=== PATIENT | female | born 1945 | race Caucasian/White ===

== ENCOUNTER → 2016-12-24 | Outpatient (CLI) | payer MEDICARE, OTHER ==
--- NOTE | 2016-12-28 06:56 | MM ---
Reason for exam: screening (asymptomatic). Last mammogram was performed 1 year ago. History: Patient is postmenopausal and history of other cancer. Physical Findings: A clinical breast exam by your physician is recommended on an annual basis and results should be correlated with mammographic findings. MG Screening Mammo w CAD Bilateral CC and MLO view(s) were taken. Prior study comparison: December 15, 2015, bilateral MG screening mammo w CAD. December 13, 2014, bilateral MG screening mammo w CAD. December 11, 2013, bilateral digital screening mammo w/CAD. There are scattered fibroglandular densities. No significant changes when compared with prior studies. ASSESSMENT: Negative, BI-RAD 1 RECOMMENDATION: Routine screening mammogram of both breasts in 1 year.
== END | disposition home or self-care (01) ==
LOC: RADMAMWWP 12:54
PROVIDERS: ATTEND Obstetrics & Gynecology
DX: Z12.31 Encounter for screening mammogram for malignant neoplasm of breast (principal)

== ENCOUNTER → 2017-03-28 | Outpatient (CLI) | payer MEDICARE, OTHER ==
--- NOTE | 2017-03-28 15:36 | BD ---
EXAMINATION TYPE: MG DEXA axial skeleton. DATE OF EXAM: 03/28/2017 1:00 PM CLINICAL HISTORY: Height: 6 in Weight: 179 FRAX RISK QUESTIONS: Alcohol (3 or more units per day): no Family History (Parent hip fracture): no Glucocorticoids (More than 3mos): no (Ex: prednisone, prednisolone, methylprednisolone, dexamethasone, and hydrocortisone). History of Fracture in Adulthood: yes Secondary Osteoporosis: 1. Type 1 Diabetes: no 2. Hyperthyroidism: no 3. Menopause before 45: 51 4. Malnutrition: no 5. Chronic liver disease: no Rheumatoid Arthritis: no Current Tobacco Use: no RISK FACTORS HISTORY OF: Other Fractures since Age 51: yes, ankle Family History of Osteoporosis: yes, mother Drink Alcohol: wine, occasionally Active: yes Diet low in dairy products/other sources of calcium: no Postmenopausal woman: yes Take estrogen and/or progesterone medications: no Lost more than 2 inches in height since high school: no Frequent falls: no Poor Health: no Hyperparathyroidism: no Adrenal Insufficiency: no MEDICATIONS: Prednisone or other steroids: no Thyroid Medications: yes Which medication: Levothyroxine How Long: about 10 years Osteoporosis Medications: no Additional Medications: calcium & Vitamin D, blood pressure meds EXAM MEASUREMENTS: Bone mineral densitometry was performed using the [employer] System. Bone mineral density as measured about the Lumbar spine is: ----- L1-L4(G/cm2): 1.386 T Score Values are as follows: ----- L2: 1.0 ----- L3: 2.3 ----- L4: 2.5 ----- L1-L4: 1.7 Bone mineral density has: Decreased -6.6% since study of: 02/24/2015 Bone mineral density about the R hip (g/cm2): 0.865 Bone mineral density about the L hip (g/cm2): 0.876 T Score values are as follows: -----R Neck: -1.2 -----L Neck: -1.2 -----R Total: -1.1 -----L Total: -1.0 Bone mineral density has: Decreased -0.6% since study of: 02/24/2015 IMPRESSION: Osteopenia (T Score between -2.5 and -1 as noted by T score values Both hips There is slightly increased risk of fracture and the patient may be considered for treatment. Re-Screen 2-5 years. NOTE: T-SCORE=SD OF THE YOUNG ADULT MEAN.
== END | disposition home or self-care (01) ==
LOC: RADBDWWP 12:24
PROVIDERS: ATTEND Obstetrics & Gynecology
DX: M85.80 Other specified disorders of bone density and structure, unspecified site (principal)
CPT/HCPCS: 77080

== ENCOUNTER 2017-11-17 13:40 | Inpatient (IN) | payer MEDICARE, OTHER ==
--- NOTE | 2017-11-17 16:23 | ED ---
General Adult HPI - General Chief complaint: Abdominal Pain Stated complaint: pain on left side Time Seen by Provider: 11/17/17 16:08 Source: patient, family, RN notes reviewed, old records reviewed Mode of arrival: ambulatory Limitations: no limitations - History of Present Illness Initial comments: Complaint and history of present illness this is a 72-year-old female here with her . Patient reports for the past 24-48 hours to discomfort in the left side of her abdomen. Slightly decreased appetite no nausea no vomiting she does have little bowel movement this morning a normal bowel movement 2 days ago. She does have a past history of bowel surgery because of adhesions. - Related Data Home Medications Medication Instructions Recorded Confirmed Amitriptyline HCl [Amitriptyline 50 mg PO HS 06/14/16 11/17/17 HCl] Aspirin 81 mg PO DAILY 06/14/16 11/17/17 Calcium Carbonate/Vitamin D3 2 tab PO DAILY 06/14/16 11/17/17 [Calcium 600-Vit D3 800 Tab] Docusate [Colace] 100 mg PO BID 06/14/16 11/17/17 Fish Oil/Dha/Epa [Fish Oil 1,200 1 cap PO DAILY 06/14/16 11/17/17 mg Fish Oil] Glucosamine Sulfate 1,500 mg PO DAILY 06/14/16 11/17/17 L.acidoph,Paracasei, B.lactis 1 cap PO DAILY 06/14/16 11/17/17 [Probiotic] Levothyroxine Sodium [Synthroid] 88 mcg PO QAM 06/14/16 11/17/17 Losartan [Cozaar] 50 mg PO QAM 06/14/16 11/17/17 Multivit-Min/Iron/Folic/Lutein 1 each PO DAILY 06/14/16 11/17/17 [Centrum Silver Women Tablet] Omeprazole 20 mg PO HS 06/14/16 11/17/17 Spironolactone [Spironolactone] 37.5 mg PO DAILY 06/14/16 11/17/17 Cholecalciferol [Vitamin D3] 500 unit PO DAILY 11/17/17 11/17/17 Ciprofloxacin HCl [Cipro] 500 mg PO Q12HR PRN 11/17/17 11/17/17 Clindamycin HCl [Cleocin] 600 mg PO ONCE PRN 01/11/18 01/11/18 Fluorometholone 0.1% Ophth Elly 1 drops BOTH EYES Q6H PRN 11/17/17 11/17/17 [Fml] Ibuprofen [Motrin] 200 - 400 mg PO Q6HR PRN 11/17/17 11/17/17 Minocycline [Minocin] 50 mg PO Q12HR PRN 11/17/17 11/17/17 Sodium Chloride 5% Ophth Oint 1 applic BOTH EYES HS 11/17/17 11/17/17 [Chikis 128] Turmeric Root Extract [Turmeric] 500 mg PO DAILY PRN 11/17/17 11/17/17 Allergies Allergy/AdvReac Type Severity Reaction Status Date / Time celecoxib [From Celebrex] Allergy "dizziness,elevated Verified 11/17/17 16:09 b/p" codeine Allergy "upset Verified 11/17/17 16:09 stomach" erythromycin base Allergy "stomach Verified 11/17/17 16:09 issues" hydrocodone Allergy "didn't Verified 11/17/17 16:09 feel well",constipation hydrocodone bitartrate Allergy "didn't Verified 11/17/17 16:09 [From Lortab] feel well",constipation Penicillins Allergy Rash/Hives Verified 11/17/17 16:09 oxycodone HCl [From Percocet] AdvReac constipatio Verified 11/17/17 16:09 n Review of Systems ROS Statement: Those systems with pertinent positive or pertinent negative responses have been documented in the HPI. Review of systems; no headache or visual acuity changes no stiff neck no chest pain or shortness of breath or abdominal discomfort is the left side of the abdomen. No back pain. No change in urine habits. She has had constipation problems in the past. She's had history of adhesions and needed surgery for lysis of adhesions. No neuro deficits. All systems are reviewed. Past medical problems basal skin cancer, GERD, hypertension, osteoarthritis, hypothyroidism. The patient's also history diverticulitis. She's had a partial hysterectomy, total right knee replacement and as noted above lysis of adhesions in the abdomen. Family history significant for brother at polyp removed which was cancers. And a mother of lung cancer. Patient has ALLERGIES to medications that cause constipation not true ALLERGY. The patient denies smoking drinks alcohol socially. ROS Other: All systems not noted in ROS Statement are negative. Past Medical History Past Medical History: Cancer, GERD/Reflux, Hypertension, Osteoarthritis (OA), Thyroid Disorder Additional Past Medical History / Comment(s): skin cancer-basal cell,torn cornea ,dry eyes History of Any Multi-Drug Resistant Organisms: None Reported Past Surgical History: Hysterectomy, Joint Replacement, Orthopedic Surgery Additional Past Surgical History / Comment(s): rt knee replaced, laparotomy repair to untwist bowel Past Anesthesia/Blood Transfusion Reactions: No Reported Reaction Past Psychological History: No Psychological Hx Reported Smoking Status: Never smoker Past Alcohol Use History: None Reported Past Drug Use History: None Reported - Past Family History Father Family Medical History: Myocardial Infarction ([place]) Mother Family Medical History: Cancer Additional Family Medical History / Comment(s): lung problems General Exam - General Exam Comments Initial Comments: General: The patient is awake and alert, in no distress, and does not appear acutely ill. With a complaint of left lower and lateral abdominal pain no bowel movement for 24 hours. Vital signs temperature 99.2 pulse 100 respiratory rate 18 pulse ox on percent room air blood pressure 130/67 Eye: Pupils are equal, round and reactive to light, extra-ocular movements are intact ; there is normal conjunctiva bilaterally. No signs of icterus. Ears, nose, mouth and throat: There are moist mucous membranes and no oral lesions. Neck: The neck is supple, there is no tenderness no anterior cervical lymphadenopathy , thyroid not enlarged. Cardiovascular: There is a regular rate and rhythm. No murmur, rub or gallop is appreciated. Respiratory: Lungs are clear to auscultation, respirations are non-labored, breath sounds are equal. No wheezes, stridor, rales, or rhonchi. Gastrointestinal: Abdomen is soft to the entire abdomen except for the left lower and lateral abdomen with the patient has voluntary guarding. Normoactive bowel sounds. No masses palpable. No rebound or referred pain. Back: There is no tenderness to palpation in the midline. There is no obvious deformity. No rashes noted. Shingles was discussed. Musculoskeletal: Normal ROM, no tenderness, There is no pedal edema. There is no calf tenderness or swelling. Sensation intact. Pulses equal bilaterally 2+. Neurological: Eyes any neuro deficits, walking talking in normal fashion. Skin: Skin is warm and dry and no rashes or lesions are noted. Psychiatric: No complaint of or evidence of depression or anxiety. Limitations: no limitations Course Vital Signs 11/17/17 11/17/17 14:30 19:16 Temperature 99.2 F 99.3 F Pulse Rate 100 98 Respiratory 18 18 Rate Blood Pressure 130/67 121/62 O2 Sat by Pulse 100 98 Oximetry Medical Decision Making - Medical Decision Making Medical decision making; the patient is here because of left lower lateral lower abdominal pain. Labs show white count of 10.8 hemoglobin 12 medical 36, potassium 4.0 with a BUN 14 creatinine 0.8 to GFR greater than 60. Glucose 88. Amylase lipase normal, plasma lactic acid normal at 1.0. Urine clean no signs of infection Tray of the abdomen was done and reviewed by radiologist his impression is he cannot exclude early left lower lobe infiltrate. No acute intra-abdominal abnormality as read by Dr. Santana CT of the abdomen was done with IV and oral contrast. The radiologist's final impression is acute diverticulitis involving the distal descending colon without evidence of pericolonic abscess or colonic rupture. Mild degenerative changes of the spine. As read by Dr. Santana. She'll be started on Levaquin and Flagyl and admitted for further evaluation. - Lab Data Result diagrams: 11/17/17 16:39 11/17/17 16:39 Lab Results 11/17/17 11/17/17 11/17/17 Range/Units 16:39 16:39 16:39 WBC 10.8 H (3.8-10.6) k/uL RBC 4.46 (3.80-5.40) m/uL Hgb 12.3 (11.4-16.0) gm/dL Hct 36.0 (34.0-46.0) % MCV 80.7 (80.0-100.0) fL MCH 27.6 (25.0-35.0) pg MCHC 34.2 (31.0-37.0) g/dL RDW 13.6 (11.5-15.5) % Plt Count 219 (150-450) k/uL Neutrophils % 76 % Lymphocytes % 18 % Monocytes % 4 % Eosinophils % 1 % Basophils % 0 % Neutrophils # 8.2 H (1.3-7.7) k/uL Lymphocytes # 2.0 (1.0-4.8) k/uL Monocytes # 0.4 (0-1.0) k/uL Eosinophils # 0.1 (0-0.7) k/uL Basophils # 0.0 (0-0.2) k/uL Sodium 137 (137-145) mmol/L Potassium 4.0 (3.5-5.1) mmol/L Chloride 99 (98-107) mmol/L Carbon Dioxide 23 (22-30) mmol/L Anion Gap 15 mmol/L BUN 14 (7-17) mg/dL Creatinine 0.82 (0.52-1.04) mg/dL Est GFR (MDRD) Af Amer >60 (>60 ml/min/1.73 sqM) Est GFR (MDRD) Non-Af >60 (>60 ml/min/1.73 sqM) Glucose 88 (74-99) mg/dL Plasma Lactic Acid Anil 1.0 (0.7-2.0) mmol/L Calcium 10.0 (8.4-10.2) mg/dL Total Bilirubin 0.8 (0.2-1.3) mg/dL AST 35 (14-36) U/L ALT 38 (9-52) U/L Alkaline Phosphatase 62 (38-126) U/L Total Protein 7.7 (6.3-8.2) g/dL Albumin 4.8 (3.5-5.0) g/dL Amylase 57 (30-110) U/L Lipase 74 (23-300) U/L Urine Color Urine Appearance (Clear) Urine pH (5.0-8.0) Ur Specific [place] (1.001-1.035) Urine Protein (Negative) Urine Glucose (UA) (Negative) Urine Ketones (Negative) Urine Blood (Negative) Urine Nitrite (Negative) Urine Bilirubin (Negative) Urine Urobilinogen (<2.0) mg/dL Ur Leukocyte Esterase (Negative) 11/17/17 Range/Units 16:39 WBC (3.8-10.6) k/uL RBC (3.80-5.40) m/uL Hgb (11.4-16.0) gm/dL Hct (34.0-46.0) % MCV (80.0-100.0) fL MCH (25.0-35.0) pg MCHC (31.0-37.0) g/dL RDW (11.5-15.5) % Plt Count (150-450) k/uL Neutrophils % % Lymphocytes % % Monocytes % % Eosinophils % % Basophils % % Neutrophils # (1.3-7.7) k/uL Lymphocytes # (1.0-4.8) k/uL Monocytes # (0-1.0) k/uL Eosinophils # (0-0.7) k/uL Basophils # (0-0.2) k/uL Sodium (137-145) mmol/L Potassium (3.5-5.1) mmol/L Chloride (98-107) mmol/L Carbon Dioxide (22-30) mmol/L Anion Gap mmol/L BUN (7-17) mg/dL Creatinine (0.52-1.04) mg/dL Est GFR (MDRD) Af Amer (>60 ml/min/1.73 sqM) Est GFR (MDRD) Non-Af (>60 ml/min/1.73 sqM) Glucose (74-99) mg/dL Plasma Lactic Acid Anil (0.7-2.0) mmol/L Calcium (8.4-10.2) mg/dL Total Bilirubin (0.2-1.3) mg/dL AST (14-36) U/L ALT (9-52) U/L Alkaline Phosphatase (38-126) U/L Total Protein (6.3-8.2) g/dL Albumin (3.5-5.0) g/dL Amylase (30-110) U/L Lipase (23-300) U/L Urine Color Light Yellow Urine Appearance Clear (Clear) Urine pH 5.5 (5.0-8.0) Ur Specific [place] 1.002 (1.001-1.035) Urine Protein Negative (Negative) Urine Glucose (UA) Negative (Negative) Urine Ketones Negative (Negative) Urine Blood Negative (Negative) Urine Nitrite Negative (Negative) Urine Bilirubin Negative (Negative) Urine Urobilinogen <2.0 (<2.0) mg/dL Ur Leukocyte Esterase Negative (Negative) Disposition Clinical Impression: Diverticulitis large intestine Disposition: ADMITTED IP TO THIS [facility] Condition: Fair Referrals: Peter Parra MD [Primary Care Provider] - 1-2 days
[2017-11-17 16:51] LABS: Basophils % (A) 0 %; Eosinophils # (A) 0.1 k/uL (0-0.7); Eosinophils % (A) 1 %; HGB 12.3 gm/dL (11.4-16.0); Lymphocytes % (A) 18 %; MCH 27.6 pg (25.0-35.0); MCHC 34.2 g/dL (31.0-37.0); MCV 80.7 fL (80.0-100.0); Mean Platelet Volume 6.9; Monocytes # (A) 0.4 k/uL (0-1.0); Monocytes % (A) 4 %; Neutrophils # (A) 8.2 k/uL (1.3-7.7); Neutrophils % (A) 76 %; Platelet Count 219 k/uL (150-450); RBC 4.46 m/uL (3.80-5.40); RDW 13.6 % (11.5-15.5); WBC 10.8 k/uL (3.8-10.6)
[2017-11-17 16:55] LABS: Appearance,Urine Clear (Clear); Bilirubin,Urine Negative (Negative); Blood,Urine Negative (Negative); Color,Urine Light Yellow; Glucose,Urine (UA) Negative (Negative); Ketones,Urine Negative (Negative); Leukocyte Esterase,Urine Negative (Negative); Nitrite,Urine Negative (Negative); PH, Urine 5.5 (5.0-8.0); Protein,Urine Negative (Negative); Specific Gravity,Urine 1.002 (1.001-1.035); Urobilinogen,Urine <2.0 mg/dL (<2.0)
[2017-11-17 16:58] LABS: ALT 38 U/L (9-52); AST 35 U/L (14-36); Albumin 4.8 g/dL (3.5-5.0); Alkaline Phosphatase 62 U/L (38-126); Amylase 57 U/L (30-110); Anion Gap 15 mmol/L; Blood Urea Nitrogen 14 mg/dL (7-17); Carbon Dioxide 23 mmol/L (22-30); Chloride 99 mmol/L (98-107); Glucose 88 mg/dL (74-99); Lipase 74 U/L (23-300); Sodium 137 mmol/L (137-145); Total Bilirubin 0.8 mg/dL (0.2-1.3); Total Protein 7.7 g/dL (6.3-8.2)
--- NOTE | 2017-11-17 17:24 | XR ---
EXAMINATION TYPE: XR abdomen 2V , 3 VIEWS DATE OF EXAM ORDERED: 11/17/2017 HISTORY: abdominal pain. COMPARISON: Previous study dated 06/13/2015. FINDINGS: There is some increased density at the left lung base. Would be difficult to exclude a dev eloping infiltrate. Within the abdomen, the abdominal gas pattern is normal. There is no evidence of obstruction or free air. No unusual calcifications are seen. There are degenerative changes within the spine. IMPRESSION: 1. I CANNOT EXCLUDE AN EARLY LEFT LOWER LOBE INFILTRATE. 2. NO ACUTE INTRA-ABDOMINAL ABNORMALITY.
[2017-11-17] MEDS ORDERED: IOHEXOL 350 MG/ML 25 ML BOTTLE (ORAL USE) PO PRN (18:02)
[2017-11-17] MEDS ORDERED: RX INFO: IV CONTRAST WAS GIVEN 1 EACH MISC MISCELLANE PRN (18:02)
--- NOTE | 2017-11-17 20:26 | CT ---
EXAMINATION TYPE: CT abdomen pelvis w con DATE OF EXAM: 11/17/2017 REFERENCE: Previous study dated 02/01/2014 HISTORY: left Sided abdominal pain HISTORY: Left side abd pain today. REFERENCE: NONE CT DLP: 1166.7 mGy Automated exposure control for dose reduction was used. TECHNIQUE: Helical acquisition through the abdomen and pelvis was obtained following the oral ingesti on of with Oral Contrast and following intravenous administration of 100ml mL of Omnipaque 300. The d pablo was reformatted in axial, coronal and sagittal projections. FINDINGS: There is minimal atelectasis at the left lung base. There is no pleural or pericardial flu id. The heart is not enlarged. Within the abdomen, the liver, spleen and gallbladder appear normal. Both adrenal glands appear normal. Both kidneys demonstrate function and appear morphologically normal. The pancreas is unremarkable. There is no significant retroperitoneal, iliac or inguinal adenopathy. The bladder is unremarkable. The uterus and ovaries are not visualized. There is extensive diverticular disease throughout the left side of the colon. There is pericolonic i nflammation in the distal descending colon consistent with diverticulitis. There is no evidence of co lonic rupture or abscess formation. The appendix is not visualized. Small bowel loops are normal. There is no free air and no free fluid. There is facet arthropathy and hypertrophic spondylosis within the spine. There is an S-shaped scolio sis convex to the right in the thoracic region and to the left in the lumbar region. IMPRESSION: 1. ACUTE DIVERTICULITIS INVOLVING THE DISTAL DESCENDING COLON WITHOUT EVIDENCE OF PERICOLONIC ABSCESS OR COLONIC RUPTURE. 2. MILD DEGENERATIVE CHANGES WITHIN THE SPINE.
[2017-11-17] MEDS ORDERED: LEVOFLOXACIN 500MG-D5W PMX 500 MG in DEXTROSE/WATER 1 100ML.BAG IVPB STA (20:59)
[2017-11-17] MEDS ORDERED: metroNIDAZOLE 500 MG TAB PO STA (21:00)
[2017-11-17] MEDS ORDERED: NALOXONE 0.4 MG/ML 1 ML VIAL IV PRN (21:02)
[2017-11-17] MEDS: KETOROLAC 30 MG/ML 1 ML VIAL IVP PRN (21:31)
[2017-11-17] MEDS: SODIUM CHLORIDE 0.9% 1,000 ML IV SCH (21:31)
[2017-11-17] MEDS: ONDANSETRON 4 MG/2 ML VIAL IVP PRN (21:31)
[2017-11-17 22:07] VITALS: BMI 29.9
[2017-11-17] MEDS: SODIUM CHLORIDE 5% OPHTH OINT 3.5 GM TUBE RIGHT EYE SCH (23:40)
[2017-11-18] MEDS: LEVOTHYROXINE 88 MCG TAB PO SCH (05:43)
[2017-11-18] MEDS: SODIUM CHLORIDE 0.9% 1,000 ML IV SCH ×3 (05:44→20:20)
[2017-11-18] MEDS: KETOROLAC 30 MG/ML 1 ML VIAL IVP PRN ×3 (05:46→18:19)
[2017-11-18] MEDS: metroNIDAZOLE 500 MG TAB PO SCH ×4 (07:42→21:37)
[2017-11-18] MEDS ORDERED: FLUOROMETHOLONE 0.1% OPHTH DROPS 5 ML BTL BOTH EYES PRN (07:55)
--- NOTE | 2017-11-18 07:55 | P.HPIM ---
History of Present Illness H&P Date: 11/18/17 Chief Complaint: Left lower quadrant abdominal pain. This is a history of physical 72-year-old white female with history of 24 hour worsening of abdominal pain. She states yesterday after mild bowel movement, she started having left lower quadrant pain without radiation. Appetite started decreasing and the pain became worse. Evaluation in the emergency room did show computed tomography scan of abdomen with acute diverticulitis without pericolonic abscess or perforation. The patient seems to be resting appropriately and states her pain control is stabilized with appropriate medication. She has no previous history of diverticular disease. The patient states no change in diet over the last week. Review of Systems Constitutional: Denies chills, Denies fever Ears, nose, mouth and throat: Denies headache, Denies sore throat Cardiovascular: Denies chest pain, Denies shortness of breath Respiratory: Denies cough Gastrointestinal: Reports abdominal pain, Reports bloating, Denies diarrhea, Denies nausea, Denies vomiting Genitourinary: Denies dysuria, Denies hematuria Past Medical History Past Medical History: Cancer, GERD/Reflux, Hypertension, Osteoarthritis (OA), Thyroid Disorder Additional Past Medical History / Comment(s): skin cancer-basal cell,torn cornea ,dry eyes, hypothyroid. History of Any Multi-Drug Resistant Organisms: None Reported Past Surgical History: Hysterectomy, Joint Replacement, Orthopedic Surgery Additional Past Surgical History / Comment(s): rt knee replaced, laparotomy repair to untwist bowel Past Anesthesia/Blood Transfusion Reactions: No Reported Reaction Past Psychological History: No Psychological Hx Reported Smoking Status: Never smoker Past Alcohol Use History: None Reported Past Drug Use History: None Reported - Past Family History Father Family Medical History: Myocardial Infarction ([place]) Mother Family Medical History: Cancer Additional Family Medical History / Comment(s): lung problems Medications and Allergies Home Medications Medication Instructions Recorded Confirmed Type Amitriptyline HCl [Amitriptyline 50 mg PO HS 06/14/16 11/17/17 History HCl] Aspirin 81 mg PO DAILY 06/14/16 11/17/17 History Calcium Carbonate/Vitamin D3 2 tab PO DAILY 06/14/16 11/17/17 History [Calcium 600-Vit D3 800 Tab] Docusate [Colace] 100 mg PO BID 06/14/16 11/17/17 History Fish Oil/Dha/Epa [Fish Oil 1,200 1 cap PO DAILY 06/14/16 11/17/17 History mg Fish Oil] Glucosamine Sulfate 1,500 mg PO DAILY 06/14/16 11/17/17 History L.acidoph,Paracabhii, B.lactis 1 cap PO DAILY 06/14/16 11/17/17 History [Probiotic] Levothyroxine Sodium [Synthroid] 88 mcg PO QAM 06/14/16 11/17/17 History Losartan [Cozaar] 50 mg PO QAM 06/14/16 11/17/17 History Multivit-Min/Iron/Folic/Lutein 1 each PO DAILY 06/14/16 11/17/17 History [Centrum Silver Women Tablet] Omeprazole 20 mg PO HS 06/14/16 11/17/17 History Spironolactone [Spironolactone] 37.5 mg PO DAILY 06/14/16 11/17/17 History Cholecalciferol [Vitamin D3] 500 unit PO DAILY 11/17/17 11/17/17 History Ciprofloxacin HCl [Cipro] 500 mg PO Q12HR PRN 11/17/17 11/17/17 History Clindamycin HCl [Cleocin] 600 mg PO ONCE PRN 11/17/17 11/17/17 History Fluorometholone 0.1% Ophth Elly 1 drops BOTH EYES Q6H PRN 11/17/17 11/17/17 History [Fml] Ibuprofen [Motrin] 200 - 400 mg PO Q6HR PRN 11/17/17 11/17/17 History Minocycline [Minocin] 50 mg PO Q12HR PRN 11/17/17 11/17/17 History Sodium Chloride 5% Ophth Oint 1 applic BOTH EYES HS 11/17/17 11/17/17 History [Chikis 128] Turmeric Root Extract [Turmeric] 500 mg PO DAILY PRN 11/17/17 11/17/17 History Allergies Allergy/AdvReac Type Severity Reaction Status Date / Time celecoxib [From Celebrex] Allergy "dizziness,elevated Verified 11/17/17 16:09 b/p" codeine Allergy "upset Verified 11/17/17 16:09 stomach" erythromycin base Allergy "stomach Verified 11/17/17 16:09 issues" hydrocodone Allergy "didn't Verified 11/17/17 16:09 feel well",constipation hydrocodone bitartrate Allergy "didn't Verified 11/17/17 16:09 [From Lortab] feel well",constipation Penicillins Allergy Rash/Hives Verified 11/17/17 16:09 oxycodone HCl [From Percocet] AdvReac constipatio Verified 11/17/17 16:09 n Physical Exam Vitals: Vital Signs Temp Pulse Pulse Resp BP BP Pulse Ox 11/18/17 07:00 98.2 F 89 16 98/53 92 L 11/17/17 23:00 97.5 F L 97 16 124/61 92 L 11/17/17 21:41 98.4 F 99 18 141/68 99 11/17/17 19:16 99.3 F 98 18 121/62 98 11/17/17 14:30 99.2 F 100 18 130/67 100 Intake and Output 11/17/17 11/18/17 11/18/17 22:59 06:59 14:59 Other: Voiding Method Toilet # Voids 1 1 Weight 84.2 kg - Constitutional General appearance: no acute distress - EENT Eyes: EOMI - Neck Neck: no lymphadenopathy - Respiratory Respiratory: bilateral: CTA - Cardiovascular Rhythm: regular Heart sounds: normal: S1, S2 - Gastrointestinal Left lower quadrant tenderness. General gastrointestinal: decreased bowel sounds, soft, tenderness Localized gastrointestinal: tender: LLQ - Integumentary Integumentary: no cellulitis - Neurologic Neurologic: CNII-XII intact - Psychiatric Psychiatric: A&O x's 3, appropriate affect, intact judgment & insight Results CBC & Chem 7: 11/17/17 16:39 11/17/17 16:39 Labs: Abnormal Lab Results - Last 24 Hours (Table) 11/17/17 Range/Units 16:39 WBC 10.8 H (3.8-10.6) k/uL Neutrophils # 8.2 H (1.3-7.7) k/uL Microbiology - Last 24 Hours (Table) 11/17/17 16:39 Urine Culture - Preliminary Urine,Voided Thrombosis Risk Factor Assmnt - Choose All That Apply Each Risk Factor Represents 2 Points: Age 61-74 years Other congenital or acquired thrombophilia - If yes, enter type in comment: No Thrombosis Risk Factor Assessment Total Risk Factor Score: 2 Thrombosis Risk Factor Assessment Level: Low Risk Assessment and Plan (1) Diverticulitis large intestine Current Visit: Yes Status: Acute Code(s): K57.32 - DVTRCLI OF LG INT W/O PERFORATION OR ABSCESS W/O BLEEDING SNOMED Code(s): 8251673 (2) Essential (primary) hypertension Current Visit: Yes Status: Acute Code(s): I10 - ESSENTIAL (PRIMARY) HYPERTENSION SNOMED Code(s): 37994152 (3) Hypothyroid Current Visit: Yes Status: Acute Code(s): E03.9 - HYPOTHYROIDISM, UNSPECIFIED SNOMED Code(s): 36504489 Plan: Treatment will be started. Otherwise, surgery has been consulted. Reconcile home medications. See orders otherwise. Time with Patient: Greater than 30
[2017-11-18 08:37] LABS: Basophils % (A) 0 %; Eosinophils # (A) 0.1 k/uL (0-0.7); Eosinophils % (A) 1 %; HCT 34.9 % (34.0-46.0); HGB 11.4 gm/dL (11.4-16.0); Lymphocytes # (A) 1.5 k/uL (1.0-4.8); Lymphocytes % (A) 18 %; MCH 27.3 pg (25.0-35.0); MCHC 32.6 g/dL (31.0-37.0); MCV 83.8 fL (80.0-100.0); Mean Platelet Volume 8.6; Monocytes # (A) 0.4 k/uL (0-1.0); Monocytes % (A) 5 %; Neutrophils # (A) 6.1 k/uL (1.3-7.7); Neutrophils % (A) 74 %; Platelet Count 168 k/uL (150-450); RBC 4.17 m/uL (3.80-5.40); WBC 8.2 k/uL (3.8-10.6)
[2017-11-18] MEDS: LOSARTAN 50 MG TAB PO SCH (08:57)
[2017-11-18] MEDS: SPIRONOLACTONE 25 MG TAB PO SCH (08:57)
--- NOTE | 2017-11-18 18:13 | P.GSCN ---
History of Present Illness Consult date: 11/18/17 Reason for Consult: Diverticulitis History of present illness: 72-year-old female who complains of abdominal pain that started yesterday. Pain is located in the left lower quadrant. No history of similar events. Denies nausea or vomiting. Appetite diminished. No fevers or chills. T-max 99.3. Last colonoscopy approximately 1 year ago. She has known diverticulosis. CAT scan was performed and showed acute diverticulitis involving the distal descending colon. No prior attacks of diverticulitis. Denies rectal bleeding or melena. White blood cell count today is normal. Review of Systems The patient denies any acute changes in vision or hearing, no dysphagia or odynophagia, no chest pain or shortness of breath, no dysuria or hematuria, no headache, no runny nose, no rectal bleeding or melena, no unexplained weight loss Past Medical History Past Medical History: Cancer, GERD/Reflux, Hypertension, Osteoarthritis (OA), Thyroid Disorder Additional Past Medical History / Comment(s): skin cancer-basal cell,torn cornea ,dry eyes, hypothyroid. History of Any Multi-Drug Resistant Organisms: None Reported Past Surgical History: Hysterectomy, Joint Replacement, Orthopedic Surgery Additional Past Surgical History / Comment(s): rt knee replaced, laparotomy repair to untwist bowel Past Anesthesia/Blood Transfusion Reactions: No Reported Reaction Past Psychological History: No Psychological Hx Reported Smoking Status: Never smoker Past Alcohol Use History: None Reported Past Drug Use History: None Reported - Past Family History Father Family Medical History: Myocardial Infarction ([place]) Mother Family Medical History: Cancer Additional Family Medical History / Comment(s): lung problems Medications and Allergies Home Medications Medication Instructions Recorded Confirmed Type Amitriptyline HCl [Amitriptyline 50 mg PO HS 06/14/16 11/17/17 History HCl] Aspirin 81 mg PO DAILY 06/14/16 11/17/17 History Calcium Carbonate/Vitamin D3 2 tab PO DAILY 06/14/16 11/17/17 History [Calcium 600-Vit D3 800 Tab] Docusate [Colace] 100 mg PO BID 06/14/16 11/17/17 History Fish Oil/Dha/Epa [Fish Oil 1,200 1 cap PO DAILY 06/14/16 11/17/17 History mg Fish Oil] Glucosamine Sulfate 1,500 mg PO DAILY 06/14/16 11/17/17 History L.acidoph,Paracasei, B.lactis 1 cap PO DAILY 06/14/16 11/17/17 History [Probiotic] Levothyroxine Sodium [Synthroid] 88 mcg PO QAM 06/14/16 11/17/17 History Losartan [Cozaar] 50 mg PO QAM 06/14/16 11/17/17 History Multivit-Min/Iron/Folic/Lutein 1 each PO DAILY 06/14/16 11/17/17 History [Centrum Silver Women Tablet] Omeprazole 20 mg PO HS 06/14/16 11/17/17 History Spironolactone [Spironolactone] 37.5 mg PO DAILY 06/14/16 11/17/17 History Cholecalciferol [Vitamin D3] 500 unit PO DAILY 11/17/17 11/17/17 History Ciprofloxacin HCl [Cipro] 500 mg PO Q12HR PRN 11/17/17 11/17/17 History Clindamycin HCl [Cleocin] 600 mg PO ONCE PRN 11/17/17 11/17/17 History Fluorometholone 0.1% Ophth Elly 1 drops BOTH EYES Q6H PRN 11/17/17 11/17/17 History [Fml] Ibuprofen [Motrin] 200 - 400 mg PO Q6HR PRN 11/17/17 11/17/17 History Minocycline [Minocin] 50 mg PO Q12HR PRN 11/17/17 11/17/17 History Sodium Chloride 5% Ophth Oint 1 applic BOTH EYES HS 11/17/17 11/17/17 History [Chikis 128] Turmeric Root Extract [Turmeric] 500 mg PO DAILY PRN 11/17/17 11/17/17 History Allergies Allergy/AdvReac Type Severity Reaction Status Date / Time celecoxib [From Celebrex] Allergy "dizziness,elevated Verified 11/17/17 16:09 b/p" codeine Allergy "upset Verified 11/17/17 16:09 stomach" erythromycin base Allergy "stomach Verified 11/17/17 16:09 issues" hydrocodone Allergy "didn't Verified 11/17/17 16:09 feel well",constipation hydrocodone bitartrate Allergy "didn't Verified 11/17/17 16:09 [From Lortab] feel well",constipation Penicillins Allergy Rash/Hives Verified 11/17/17 16:09 oxycodone HCl [From Percocet] AdvReac constipatio Verified 11/17/17 16:09 n Surgical - Exam Vital Signs Temp Pulse Resp BP Pulse Ox 99.2 F 100 18 130/67 100 11/17/17 14:30 11/17/17 14:30 11/17/17 14:30 11/17/17 14:30 11/17/17 14:30 Physical exam: General: Well-developed, well-nourished HEENT: Normocephalic, sclerae nonicteric Abdomen: Left lower quadrant tenderness, no rebound or guarding, nondistended Extremities: No edema Neuro: Alert and oriented Results - Labs 11/18/17 08:22 11/17/17 16:39 Microbiology - Last 24 Hours (Table) 11/17/17 16:39 Urine Culture - Preliminary Urine,Voided Assessment and Plan (1) Diverticulitis large intestine Narrative/Plan: Continue IV antibiotics. Continue clear liquid diet. Reevaluate tomorrow to determine advancing diet. Current Visit: Yes Status: Acute Code(s): K57.32 - DVTRCLI OF LG INT W/O PERFORATION OR ABSCESS W/O BLEEDING SNOMED Code(s): 4041141
[2017-11-18] MEDS: LEVOFLOXACIN 500MG-D5W PMX 500 MG in DEXTROSE/WATER 1 100ML.BAG IVPB SCH (20:19)
[2017-11-18] MEDS: AMITRIPTYLINE HCL 50 MG TAB PO SCH (20:19)
[2017-11-18] MEDS: SODIUM CHLORIDE 5% OPHTH OINT 3.5 GM TUBE RIGHT EYE SCH (20:20)
[2017-11-18] MEDS: PANTOPRAZOLE 40 MG TABLET PO SCH (20:20)
[2017-11-19] MEDS: KETOROLAC 30 MG/ML 1 ML VIAL IVP PRN ×4 (01:10→18:36)
[2017-11-19] MEDS: LEVOTHYROXINE 88 MCG TAB PO SCH (06:37)
[2017-11-19] MEDS: SODIUM CHLORIDE 0.9% 1,000 ML IV SCH ×3 (06:37→21:40)
[2017-11-19 08:46] LABS: Basophils % (A) 1 %; Eosinophils # (A) 0.2 k/uL (0-0.7); Eosinophils % (A) 3 %; HCT 33.1 % (34.0-46.0); HGB 10.8 gm/dL (11.4-16.0); Lymphocytes # (A) 1.1 k/uL (1.0-4.8); Lymphocytes % (A) 17 %; MCHC 32.7 g/dL (31.0-37.0); MCV 85.7 fL (80.0-100.0); Mean Platelet Volume 7.1; Monocytes # (A) 0.3 k/uL (0-1.0); Monocytes % (A) 5 %; Neutrophils # (A) 4.5 k/uL (1.3-7.7); Neutrophils % (A) 72 %; Platelet Count 165 k/uL (150-450); RBC 3.86 m/uL (3.80-5.40); RDW 13.4 % (11.5-15.5); WBC 6.2 k/uL (3.8-10.6)
[2017-11-19] MEDS: LOSARTAN 50 MG TAB PO SCH (08:48)
[2017-11-19] MEDS: metroNIDAZOLE 500 MG TAB PO SCH ×4 (08:48→21:40)
[2017-11-19] MEDS: SPIRONOLACTONE 25 MG TAB PO SCH (08:48)
--- NOTE | 2017-11-19 11:46 | P.PN ---
Subjective Progress Note Date: 11/19/17 Principal diagnosis: Diverticulitis Patient says her pain is improved today. She did have a small bowel movement. She is afebrile. White blood cell count remains normal. Objective - Vital Signs Vital signs: Vital Signs Temp 98.7 F 11/19/17 07:00 Pulse 78 11/19/17 07:00 Resp 16 11/19/17 08:00 BP 107/60 11/19/17 07:00 Pulse Ox 90 L 11/19/17 07:00 Intake & Output 11/18/17 11/19/17 11/19/17 18:59 06:59 18:59 Intake Total 320 400 200 Balance 320 400 200 Intake: Oral 320 400 200 Other: Voiding Method Toilet Toilet Toilet # Voids 2 1 # Bowel Movements 0 - Exam Abdomen: Soft, nondistended, mild tenderness left lower quadrant - Labs CBC & Chem 7: 11/19/17 08:00 11/17/17 16:39 Labs: Abnormal Lab Results - Last 24 Hours (Table) 11/19/17 Range/Units 08:00 Hgb 10.8 L (11.4-16.0) gm/dL Hct 33.1 L (34.0-46.0) % Microbiology - Last 24 Hours (Table) 11/17/17 16:39 Urine Culture - Final Urine,Voided Assessment and Plan (1) Diverticulitis large intestine Narrative/Plan: Continue antibiotics. Advance diet to full liquids. Possible discharge tomorrow. Current Visit: Yes Status: Acute Code(s): K57.32 - DVTRCLI OF LG INT W/O PERFORATION OR ABSCESS W/O BLEEDING SNOMED Code(s): 7578662
[2017-11-19] MEDS: ONDANSETRON 4 MG/2 ML VIAL IVP PRN (18:43)
[2017-11-19] MEDS: LEVOFLOXACIN 500MG-D5W PMX 500 MG in DEXTROSE/WATER 1 100ML.BAG IVPB SCH (21:39)
[2017-11-19] MEDS: PANTOPRAZOLE 40 MG TABLET PO SCH (21:39)
[2017-11-19] MEDS: AMITRIPTYLINE HCL 50 MG TAB PO SCH (21:39)
[2017-11-19] MEDS: SODIUM CHLORIDE 5% OPHTH OINT 3.5 GM TUBE RIGHT EYE SCH (21:40)
[2017-11-20] MEDS: KETOROLAC 30 MG/ML 1 ML VIAL IVP PRN (03:33)
[2017-11-20] MEDS: SODIUM CHLORIDE 0.9% 1,000 ML IV SCH ×2 (06:23→11:19)
[2017-11-20] MEDS: LEVOTHYROXINE 88 MCG TAB PO SCH (06:23)
[2017-11-20 07:35] VITALS: BP 138/57; PULSE 68; RESP 16; TEMP 96.1
[2017-11-20] MEDS: SPIRONOLACTONE 25 MG TAB PO SCH (08:08)
[2017-11-20] MEDS: metroNIDAZOLE 500 MG TAB PO SCH ×2 (08:09→12:34)
[2017-11-20] MEDS: LOSARTAN 50 MG TAB PO SCH (08:09)
[2017-11-20] MEDS: ONDANSETRON 4 MG/2 ML VIAL IVP PRN (11:20)
--- NOTE | 2017-11-20 12:01 | P.PN ---
Subjective Progress Note Date: 11/20/17 Principal diagnosis: Diverticulitis Patient doing well today. No significant abdominal pain. Mild nausea at times. She did have a bowel movement. She is afebrile. Objective - Vital Signs Vital signs: Vital Signs Temp 96.1 F L 11/20/17 07:00 Pulse 68 11/20/17 07:00 Resp 16 11/20/17 08:00 BP 138/57 11/20/17 07:00 Pulse Ox 94 L 11/20/17 07:00 Intake & Output 11/19/17 11/20/17 11/20/17 18:59 06:59 18:59 Intake Total 400 725 200 Balance 400 725 200 Intake: Oral 400 725 200 Other: Voiding Method Toilet Toilet Toilet # Voids 2 1 # Bowel Movements 1 - Exam Abdomen: Soft, nondistended, nontender - Labs CBC & Chem 7: 11/19/17 08:00 11/17/17 16:39 Assessment and Plan (1) Diverticulitis large intestine Narrative/Plan: Continue advancing diet. Stable for discharge. Follow-up in the outpatient setting. Home on oral antibiotics. Current Visit: Yes Status: Acute Code(s): K57.32 - DVTRCLI OF LG INT W/O PERFORATION OR ABSCESS W/O BLEEDING SNOMED Code(s): 3622882
--- NOTE | 2017-11-20 22:26 | P.PN ---
Subjective Progress Note Date: 11/19/17 Principal diagnosis: Acute diverticulitis This is a history of physical 72-year-old white female with history of 24 hour worsening of abdominal pain. She states yesterday after mild bowel movement, she started having left lower quadrant pain without radiation. Appetite started decreasing and the pain became worse. Evaluation in the emergency room did show computed tomography scan of abdomen with acute diverticulitis without pericolonic abscess or perforation. The patient seems to be resting appropriately and states her pain control is stabilized with appropriate medication. She has no previous history of diverticular disease. The patient states no change in diet over the last week. 11/19/2017 Patient's abdominal pain is much improved now. Patient was started on liquid diet and will be advanced. No fever no chills. Patient is ambulating in the hallway. No complaints of chest pain or shortness of breath. Anticipate discharge next 24 hours. Objective - Vital Signs Vital signs: Vital Signs Temp 97.5 F L 11/19/17 14:42 Pulse 83 11/19/17 14:54 Resp 20 11/19/17 14:54 BP 128/71 11/19/17 14:42 Pulse Ox 97 11/19/17 14:42 Intake & Output 11/18/17 11/19/17 11/19/17 18:59 06:59 18:59 Intake Total 320 400 400 Balance 320 400 400 Intake: Oral 320 400 400 Other: Voiding Method Toilet Toilet Toilet # Voids 2 1 2 # Bowel Movements 0 1 - Exam PHYSICAL EXAMINATION: Patient is lying in the bed comfortably, no acute distress, awake alert and oriented.. HEENT: Normocephalic. Neck is supple. Pupils reactive. Nostrils clear. Oral cavity is moist. Ears reveal no drainage. Neck reveals no JVD, carotid bruits, or thyromegaly. CHEST EXAMINATION: Trachea is central. Symmetrical expansion. Lung isaacs clear to auscultation and percussion. CARDIAC: Normal S1, S2 with no gallops. No murmurs ABDOMEN: Soft. Bowel sounds normal. No organomegaly. No abdominal bruits. Extremities: reveal no edema. No clubbing or cyanosis Neurologically awake, alert, oriented x3 with well-coordinated movements. No focal deficits noted Skin: No rash or skin lesions. Psychiatric: Coperative. Nonsuicidal Musculoskeletal: No joint swelling or deformity. Normal range of motion. - Labs CBC & Chem 7: 11/19/17 08:00 11/17/17 16:39 Labs: Abnormal Lab Results - Last 24 Hours (Table) 11/19/17 Range/Units 08:00 Hgb 10.8 L (11.4-16.0) gm/dL Hct 33.1 L (34.0-46.0) % Microbiology - Last 24 Hours (Table) 11/17/17 16:39 Urine Culture - Final Urine,Voided Assessment and Plan Assessment: Acute diverticulitis Hypertension Hypothyroidism DVT prophylaxis Plan: Patient will be continued on antibiotics in the form of metronidazole and levofloxacin. Advance diet as tolerated. Anticipate discharged tomorrow. Time with Patient: Less than 30
--- NOTE | 2017-11-20 22:28 | P.DS ---
Providers Date of admission: 11/17/17 21:10 Expected date of discharge: 11/20/17 Attending physician: Peter Parra Consults: 11/17/17 21:02 Consult Physician Stat Consulting Provider: Cornelius Mitchell Reason/Comments: Diverticulitis Do you want consulting provider notified?: Yes, Notify in am Primary care physician: Peter Parra Hospital Course: Discharge diagnosis: Acute diverticulitis Hypertension Hypothyroidism Hospital course: This is a history of physical 72-year-old white female with history of 24 hour worsening of abdominal pain. She states yesterday after mild bowel movement, she started having left lower quadrant pain without radiation. Appetite started decreasing and the pain became worse. Evaluation in the emergency room did show computed tomography scan of abdomen with acute diverticulitis without pericolonic abscess or perforation. The patient seems to be resting appropriately and states her pain control is stabilized with appropriate medication. She has no previous history of diverticular disease. The patient states no change in diet over the last week. 11/19/2017 Patient's abdominal pain is much improved now. Patient was started on liquid diet and will be advanced. No fever no chills. Patient is ambulating in the hallway. No complaints of chest pain or shortness of breath. Anticipate discharge next 24 hours. 11/20/2017 Patient was seen and examined. Patient is tolerating diet. No complaints of fever no chills. No abdominal pain. No nausea vomiting. Patient is still for discharge home. Patient was advised to follow with primary care physician and recommended diverticulosis diet. Discharge medications a consultation was done. Discharge physical examination: PHYSICAL EXAMINATION: Patient is lying in the bed comfortably, no acute distress, awake alert and oriented.. HEENT: Normocephalic. Neck is supple. Pupils reactive. Nostrils clear. Oral cavity is moist. Ears reveal no drainage. Neck reveals no JVD, carotid bruits, or thyromegaly. CHEST EXAMINATION: Trachea is central. Symmetrical expansion. Lung isaacs clear to auscultation and percussion. CARDIAC: Normal S1, S2 with no gallops. No murmurs ABDOMEN: Soft. Bowel sounds normal. No organomegaly. No abdominal bruits. Extremities: reveal no edema. No clubbing or cyanosis Neurologically awake, alert, oriented x3 with well-coordinated movements. No focal deficits noted Skin: No rash or skin lesions. Psychiatric: Coperative. Nonsuicidal Musculoskeletal: No joint swelling or deformity. Normal range of motion. Patient Condition at Discharge: Fair Plan - Discharge Summary Discharge Rx Participant: No New Discharge Prescriptions: New Levofloxacin [Levaquin] 500 mg PO DAILY 4 Days #4 tab metroNIDAZOLE [Flagyl] 500 mg PO TID 4 Days #12 tab Continue L.acidoph,Paracasei, B.lactis [Probiotic] 1 cap PO DAILY Glucosamine Sulfate 1,500 mg PO DAILY Calcium Carbonate/Vitamin D3 [Calcium 600-Vit D3 800 Tab] 2 tab PO DAILY Multivit-Min/Iron/Folic/Lutein [Centrum Silver Women Tablet] 1 each PO DAILY Fish Oil/Dha/Epa [Fish Oil 1,200 mg Fish Oil] 1 cap PO DAILY Docusate [Colace] 100 mg PO BID Aspirin 81 mg PO DAILY Spironolactone 37.5 mg PO DAILY Omeprazole 20 mg PO HS Losartan [Cozaar] 50 mg PO QAM Amitriptyline HCl 50 mg PO HS Levothyroxine Sodium [Synthroid] 88 mcg PO QAM Ibuprofen [Motrin] 200 - 400 mg PO Q6HR PRN PRN Reason: Pain Fluorometholone 0.1% Ophth Elly [Fml] 1 drops BOTH EYES Q6H PRN PRN Reason: Eye Irritation Sodium Chloride 5% Ophth Oint [Chikis 128] 1 applic BOTH EYES HS Cholecalciferol [Vitamin D3] 500 unit PO DAILY Turmeric Root Extract [Turmeric] 500 mg PO DAILY PRN PRN Reason: Pain Discontinued Ciprofloxacin HCl [Cipro] 500 mg PO Q12HR PRN PRN Reason: UTI Clindamycin HCl [Cleocin] 600 mg PO ONCE PRN PRN Reason: DENTAL Minocycline [Minocin] 50 mg PO Q12HR PRN PRN Reason: EYE INFECTION Discharge Medication List Amitriptyline HCl 50 mg PO HS 06/14/16 [History] Aspirin 81 mg PO DAILY 06/14/16 [History] Calcium Carbonate/Vitamin D3 [Calcium 600-Vit D3 800 Tab] 2 tab PO DAILY [History] Docusate [Colace] 100 mg PO BID 06/14/16 [History] Fish Oil/Dha/Epa [Fish Oil 1,200 mg Fish Oil] 1 cap PO DAILY 06/14/16 [History] Glucosamine Sulfate 1,500 mg PO DAILY 06/14/16 [History] L.acidoph,Paracasei, B.lactis [Probiotic] 1 cap PO DAILY 06/14/16 [History] Levothyroxine Sodium [Synthroid] 88 mcg PO QAM 06/14/16 [History] Losartan [Cozaar] 50 mg PO QAM 06/14/16 [History] Multivit-Min/Iron/Folic/Lutein [Centrum Silver Women Tablet] 1 each PO DAILY 06/22 [History] Omeprazole 20 mg PO HS 06/14/16 [History] Spironolactone 37.5 mg PO DAILY 06/14/16 [History] Cholecalciferol [Vitamin D3] 500 unit PO DAILY 11/17/17 [History] Fluorometholone 0.1% Ophth Elly [Fml] 1 drops BOTH EYES Q6H PRN 11/17/17 [History ] Ibuprofen [Motrin] 200 - 400 mg PO Q6HR PRN 11/17/17 [History] Sodium Chloride 5% Ophth Oint [Chikis 128] 1 applic BOTH EYES HS 11/17/17 [History ] Turmeric Root Extract [Turmeric] 500 mg PO DAILY PRN 11/17/17 [History] Levofloxacin [Levaquin] 500 mg PO DAILY 4 Days #4 tab 11/20/17 [Rx] metroNIDAZOLE [Flagyl] 500 mg PO TID 4 Days #12 tab 11/20/17 [Rx] Follow up Appointment(s)/Referral(s): Cornelius Mitchell MD [Medical Doctor] - As Needed Peter Parra MD [Primary Care Provider] - 1-2 days Patient Instructions/Handouts: Diverticulitis (DC), Diverticulitis Diet (DC) Discharge Disposition: HOME SELF-CARE
== END 2017-11-20 14:59 | disposition home or self-care (01) | DRG 392 ==
LOC: EC 13:40 → 4MS4W 21:10
PROVIDERS: ADMIT Family Medicine; ATTEND Family Medicine
DX: K57.32 Diverticulitis of large intestine without perforation or abscess without bleeding (principal); E03.9 Hypothyroidism, unspecified; I10 Essential (primary) hypertension; K21.9 Gastro-esophageal reflux disease without esophagitis; Z79.82 Long term (current) use of aspirin; Z79.899 Other long term (current) drug therapy; Z82.49 Family history of ischemic heart disease and other diseases of the circulatory system; Z85.828 Personal history of other malignant neoplasm of skin; Z90.710 Acquired absence of both cervix and uterus; Z88.5 Allergy status to narcotic agent; Z88.1 Allergy status to other antibiotic agents; Z88.2 Allergy status to sulfonamides; Z79.890 Hormone replacement therapy
CPT/HCPCS: 36415; 74019; 74177; 80053; 81003; 82150; 83605; 83690; 85025; 87086; 96365; 96374; 96375; 99285

== ENCOUNTER → 2018-03-23 | Outpatient (CLI) | payer MEDICARE, OTHER ==
--- NOTE | 2018-03-24 07:56 | MM ---
Reason for exam: additional evaluation requested from prior study. Last mammogram was performed 1 year and 3 months ago. History: Patient is postmenopausal and history of other cancer. Physical Findings: Nurse did not find any significant physical abnormalities on exam. MG 3D Diag Mammo W/Cad RIKI Bilateral CC and MLO view(s) were taken. Prior study comparison: December 24, 2016, bilateral MG screening mammo w CAD. December 15, 2015, bilateral MG screening mammo w CAD. There are scattered fibroglandular densities. Finding: There are vascular, round calcifications in both breasts. There is no discrete abnormality. These results were verbally communicated with the patient and result sheet given to the patient on 03/23/18. ASSESSMENT: Benign, BI-RAD 2 RECOMMENDATION: Routine screening mammogram of both breasts in 1 year.
== END ==
LOC: RADMAMWWP 14:46
PROVIDERS: ATTEND Obstetrics & Gynecology
DX: N64.4 Mastodynia (principal)
CPT/HCPCS: 77066; G0279; 77062

== ENCOUNTER 2018-04-19 09:09 | Day surgery (SDC) | payer MEDICARE, OTHER ==
[2018-04-13 15:43] VITALS: BMI 29.5
[~2018-04-19 09:09] MED LIST: LACTATED RINGERS 1,000 ML IV SCH; LIDOCAINE 1% 20 ML VIAL (10MG/ML) FOR IV START INTRADERMA PRN; MIDAZOLAM 2 MG/2 ML VIAL IV PRN; MOXIFLOXACIN HCL 0.5% DROPS 3 ML BTL OP ONE; TETRACAINE 0.5% OPHTH (PF) DROPS 4 ML BTL OP ONE; TIMOLOL 0.5% OPHTH DROPS 5 ML BTL OP ONE
[2018-04-19] MEDS: CYCLOPENTOLATE 1% OPHTH SOLN 2 ML BTL OP ONE ×3 (11:55→12:15)
[2018-04-19] MEDS: PHENYLEPHRINE 2.5% OPHTH DRP 2ML OP NR ×3 (11:58→12:18)
[2018-04-19 12:03] VITALS: TEMP 97.5
[2018-04-19] MEDS ORDERED: TIMOLOL 0.5% OPHTH SOLN (PF) 0.2 ML DROPERETTE RIGHT EYE ONE ×2 (13:05→13:21)
[2018-04-19] MEDS ORDERED: BALANCED SALT IRRIG SOLN COMB2 15 ML IRRIG.SOLN INTRAOCULA ONE ×2 (13:05→13:21)
[2018-04-19] MEDS ORDERED: MIDAZOLAM 2 MG/2 ML VIAL ONE (13:05)
[2018-04-19] MEDS ORDERED: MOXIFLOXACIN HCL 0.5% DROPS 3 ML BTL RIGHT EYE ONE ×2 (13:05→13:23)
[2018-04-19] MEDS ORDERED: fentaNYL (PF) 50 MCG/ML 2 ML AMP ONE (13:05)
[2018-04-19] MEDS ORDERED: HYALURONATE SODIUM INTRAOCULAR 1 EACH SYRINGE (12MG/ML) INTRAOCULA ONE ×2 (13:05→13:21)
[2018-04-19] MEDS ORDERED: LIDOCAINE 1% (PF) 10MG/ML VIAL MISCELLANE ONE (13:06)
[2018-04-19] MEDS ORDERED: EPINEPHrine (PF) 0.3 ML in BALANCED SALT IRRIG SOLN COMB2 500 ML IRRIGATION ONE (13:23)
[2018-04-19] MEDS ORDERED: EPINEPHrine (PF) 1 MG/ML AMP MISCELLANE ONE (13:26)
--- NOTE | 2018-04-19 13:41 | P.OP ---
Date of Procedure: 04/19/18 Preoperative Diagnosis: NS & CS Postoperative Diagnosis: same Procedure(s) Performed: PIOL OD Implants: PCB00 14.00 Anesthesia: MAC Surgeon: Rios Parrish Estimated Blood Loss (ml): 0 Pathology: none sent Condition: stable Disposition: same day Indications for Procedure: blurry vision Operative Findings: No complications
[2018-04-19 13:45] VITALS: RESP 16
[2018-04-19 13:57] VITALS: BP 126/85; PULSE 73
--- NOTE | 2018-04-19 19:59 | OP ---
OPERATIVE REPORT PREOPERATIVE DIAGNOSIS: Nuclear sclerosis. POSTOPERATIVE DIAGNOSIS: Nuclear sclerosis, cortical sclerosis. OPERATION: Clear cornea phacoemulsification of cataract, right eye. ESTIMATED BLOOD LOSS: Zero. SPECIMEN TAKEN: None. NARRATIVE: After obtaining the appropriate consent, the patient was brought to the Operating Room where the patient was placed under cardiac monitoring and prepped and draped in the usual sterile manner. At the 11 o'clock position a 15 degree super sharp blade was used to create a paracentesis followed by instillation of 1% Xylocaine MPF 50:50 mix with BSS into the anterior chamber. This was followed by to stabilize the anterior chamber. At the 9 o'clock position a self-sealing corneal flap incision was created using 2.8 mm ranjana keratome. A cystatome was used to initiate a continuous tear capsulorrhexis which was completed with the Utrata forceps. A Binkhorst cannula was used to hydrodissect the lens nucleus followed by hydrodelineation. Phacoemulsification of the lens was performed utilizing phacochop in 14.87 seconds at 7% power. The remaining cortical material was removed using the irrigation aspiration mode followed by additional 1% Xylocaine MPF into the anterior chamber followed by Amvisc viscoelastic to stabilize the capsular bag. An [id number], 14.0 diopter posterior chamber lens was placed into the capsular bag without difficulty. The remaining viscoelastic material was removed from the anterior chamber with the irrigation/aspiration. Balanced salt solution was used to normalize the intraocular pressure. The incision was checked for watertight integrity. The patient then received two drops of 0.5% timolol followed by two drops Vigamox, was lightly patched and shielded in the usual manner. There were no complications from the procedure. The patient tolerated the procedure well and was returned to recovery in good condition. MMODL / IJN: [id number] /
== END 2018-04-19 14:16 | disposition home or self-care (01) ==
LOC: OR 09:09
PROVIDERS: ATTEND Ophthalmology
DX: H25.13 Age-related nuclear cataract, bilateral (principal); I10 Essential (primary) hypertension; K21.9 Gastro-esophageal reflux disease without esophagitis; H18.59 Other hereditary corneal dystrophies; H52.13 Myopia, bilateral; H52.4 Presbyopia; H00.026 Hordeolum internum left eye, unspecified eyelid; H00.023 Hordeolum internum right eye, unspecified eyelid; H16.223 Keratoconjunctivitis sicca, not specified as Sjogren's, bilateral; H18.423 Band keratopathy, bilateral; Z79.82 Long term (current) use of aspirin; Z79.899 Other long term (current) drug therapy; Z82.49 Family history of ischemic heart disease and other diseases of the circulatory system; Z83.3 Family history of diabetes mellitus; Z88.0 Allergy status to penicillin; Z88.1 Allergy status to other antibiotic agents; Z88.5 Allergy status to narcotic agent; Z96.651 Presence of right artificial knee joint; Z83.518 Family history of other specified eye disorder
CPT/HCPCS: 66984; C1780; J2250; J0171; J3010; J2001

== ENCOUNTER 2018-05-03 07:56 | Day surgery (SDC) | payer MEDICARE, OTHER ==
[2018-04-27 10:00] VITALS: BMI 29.9
[~2018-05-03 07:56] MED LIST changes: +CYCLOPENTOLATE 1% OPHTH SOLN 2 ML BTL OP ONE; -LACTATED RINGERS 1,000 ML IV SCH; -LIDOCAINE 1% 20 ML VIAL (10MG/ML) FOR IV START INTRADERMA PRN; -MIDAZOLAM 2 MG/2 ML VIAL IV PRN; +PHENYLEPHRINE 2.5% OPHTH DRP 2ML OP NR
[2018-05-03] MEDS ORDERED: fentaNYL (PF) 50 MCG/ML 2 ML AMP ONE (10:23)
[2018-05-03] MEDS ORDERED: MIDAZOLAM 2 MG/2 ML VIAL ONE (10:23)
[2018-05-03] MEDS ORDERED: LACTATED RINGERS 1,000 ML IV ONE ×2 (10:55)
[2018-05-03 11:23] VITALS: BP 126/70; PULSE 80; RESP 18
--- NOTE | 2018-05-03 16:11 | OP ---
OPERATIVE REPORT DATE OF SURGERY: 03 May 2018. PROCEDURES: Phacoemulsification of cataract and intraocular lens implant to the left eye. PREOPERATIVE DIAGNOSES: 1. Nuclear sclerosis. 2. Cortical sclerosis. 3. Regular astigmatism. POSTOPERATIVE DIAGNOSES: 1. Nuclear sclerosis. 2. Cortical sclerosis. 3. Regular astigmatism. SURGEONS: Dr. Rios Parrish. ANESTHESIA: Topical. ESTIMATED BLOOD LOSS: None. SPECIMEN TAKEN: None. NARRATIVE: After obtaining the appropriate consent, the patient was brought to the operating room. There she was asked to sit upright and the axes of 0 and 180 degrees were marked with a gentian roland marker on her corneal limbus. She was then placed in the proper supine position under cardiac monitoring, then prepped and draped in the usual sterile manner. She was approached from her left-hand side at the 3 o'clock position and at the 5 o'clock position a 20-gauge blade was used to create a paracentesis port. Through this opening 1% Xylocaine MPF 50:50 mix with balanced salt solution was injected into the anterior chamber. This was followed by stabilization of the anterior chamber with Amvisc. At the 3 o'clock position, a 2.5 mm keratome was used to create a self-sealing corneal flap incision in a Langerman's fashion. At this point, it was noted that the pupil had not adequately dilated and similar to the previous case. Unpreserved epinephrine MPF 1:1000 was diluted 50:50 with balanced salt solution and a small amount of this was injected under the iris and the pupil opened nicely to approximately 7 mm without difficulty. A cystotome was then introduced to begin a continuous tear capsulorrhexis which was completed using the Utrata forceps. Hydrodissection and hydrodelineation of lens was accomplished with balanced salt solution. Phacoemulsification lens utilizing phaco chop was accomplished in 11.1 seconds at 7% power. Additional Xylocaine MPF was instilled in the anterior chamber. This was followed by removal of the remaining cortex under irrigation and aspiration. Careful polishing of the posterior capsule was also accomplished. Additional Amvisc was used to stabilize the capsular bag and an [id number] 14.5 diopter posterior chamber intraocular lens was then inserted into the capsular bag without difficulty. The majority of the viscoelastic was removed from in and around the intra-ocular lens. The lens was aligned with the bryant previously placed on the cornea for the axis of 106 degrees. This was followed by removal of the remaining viscoelastic from within the anterior chamber. The eye was then brought to normal intraocular pressure through the paracentesis port with balanced salt solution and the incisions were confirmed watertight. She then received 2 drops of 0.5% timolol followed by 2 drops of moxifloxacin and was then lightly patched and shielded in the usual manner. There were no complications from the procedure. She tolerated the procedure well and was returned to outpatient recovery in good condition. MMMERRY / KAMLAN: [id number] /
== END 2018-05-03 11:37 | disposition home or self-care (01) ==
LOC: OR 07:56
PROVIDERS: ATTEND Ophthalmology
DX: H25.12 Age-related nuclear cataract, left eye (principal); H18.51 Endothelial corneal dystrophy; H16.223 Keratoconjunctivitis sicca, not specified as Sjogren's, bilateral; H18.423 Band keratopathy, bilateral; H18.59 Other hereditary corneal dystrophies; H00.023 Hordeolum internum right eye, unspecified eyelid; H00.026 Hordeolum internum left eye, unspecified eyelid; H52.4 Presbyopia; H52.13 Myopia, bilateral; Z96.1 Presence of intraocular lens; I10 Essential (primary) hypertension; E07.9 Disorder of thyroid, unspecified; M19.90 Unspecified osteoarthritis, unspecified site; Z85.828 Personal history of other malignant neoplasm of skin; K21.9 Gastro-esophageal reflux disease without esophagitis; Z79.82 Long term (current) use of aspirin; Z79.890 Hormone replacement therapy; Z79.899 Other long term (current) drug therapy; Z88.1 Allergy status to other antibiotic agents; Z88.5 Allergy status to narcotic agent; Z88.0 Allergy status to penicillin
CPT/HCPCS: 94640; 66984; C1780; J2250; J3010

== ENCOUNTER → 2018-10-24 | Outpatient (CLI) | payer MEDICARE, OTHER ==
--- NOTE | 2018-10-25 01:05 | MR ---
EXAMINATION TYPE: MR shoulder RT wo con DATE OF EXAM: 10/24/2018 COMPARISON: None HISTORY: Pain in right shoulder TECHNIQUE: Multiplanar, multisequence imaging of the right shoulder is performed without contrast. FINDINGS: There is moderate hypertrophic spurring at the AC joint with edema of the acromion and clavicle. Ther e is mild subacromial impingement. There is increased signal in the supraspinatus tendon at the attac hment on the greater tuberosity of the humerus. Subscapularis tendon is intact. The glenoid noemy appear intact. Biceps tendon is intact. There are s mall cystic changes in the greater tuberosity of the humerus. There is patchy increased signal in the supraspinatus tendon at the subacromial joint space. There is narrowing of the shoulder joint space with spurring of the humeral head. 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 Mild subacromial impingement. Mode rate hypertrophic osteoarthritis at the AC joint. There is mild hypertrophic osteoarthritis at the gl enohumeral joint.
== END ==
LOC: RADMRIMAIN 15:41
PROVIDERS: ATTEND Orthopaedic Surgery
DX: M19.011 Primary osteoarthritis, right shoulder (principal); S46.811A Strain of other muscles, fascia and tendons at shoulder and upper arm level, right arm, initial encounter; M25.811 Other specified joint disorders, right shoulder

== ENCOUNTER → 2018-11-01 | Outpatient (CLI) | payer MEDICARE, OTHER ==
--- NOTE | 2018-11-02 12:02 | USB ---
Reason for exam: clinical finding. History: Patient is postmenopausal and history of other cancer. Indicated problem(s): pain in the right breast. Physical Findings: Nurse did not find any significant physical abnormalities on exam. US Breast RT Right complete breast ultrasound includes all four quadrants, the retroareolar region and axilla. Finding demonstrates no cystic or solid lesion seen. These results were verbally communicated with the patient and result sheet given to the patient on 11/01/18. ASSESSMENT: Negative, BI-RAD 1 RECOMMENDATION: Routine screening mammogram of both breasts in 5 months. Back on schedule. Manage on a clinical basis with regard to pain.
== END | disposition home or self-care (01) ==
LOC: RADUSWWP 09:32
PROVIDERS: ATTEND Family Medicine
DX: N63.10 Unspecified lump in the right breast, unspecified quadrant (principal)

== ENCOUNTER → 2019-03-26 | Outpatient (CLI) | payer MEDICARE, OTHER ==
--- NOTE | 2019-03-28 09:25 | MM ---
Reason for exam: screening (asymptomatic). Last mammogram was performed 1 year ago. History: Patient is postmenopausal and history of other cancer. Physical Findings: A clinical breast exam by your physician is recommended on an annual basis and results should be correlated with mammographic findings. MG 3D Screening Mammo W/Cad Bilateral CC and MLO view(s) were taken. Prior study comparison: March 23, 2018, bilateral MG 3d diag mammo w/cad [facility]. December 24, 2016, bilateral MG screening mammo w CAD. There are scattered fibroglandular densities. No significant changes when compared with prior studies. ASSESSMENT: Benign, BI-RAD 2 RECOMMENDATION: Routine screening mammogram of both breasts in 1 year.
== END | disposition home or self-care (01) ==
LOC: RADMAMWWP 12:29
PROVIDERS: ATTEND Obstetrics & Gynecology
DX: Z12.31 Encounter for screening mammogram for malignant neoplasm of breast (principal)
CPT/HCPCS: 77063; 77067

== ENCOUNTER → 2019-04-03 | Outpatient (CLI) | payer MEDICARE, OTHER ==
--- NOTE | 2019-04-03 15:34 | BD ---
EXAMINATION TYPE: Axial Bone Density DATE OF EXAM: 04/03/2019 COMPARISON: 03.28.2017 CLINICAL HISTORY: Osteopenia. Postmenopausal female. Height: 65.5 Weight: 192.5 FRAX RISK QUESTIONS: Alcohol (3 or more units per day): no Family History (Parent hip fracture): no Glucocorticoids (More than 3mos): no (Ex: prednisone, prednisolone, methylprednisolone, dexamethasone, and hydrocortisone). History of Fracture in Adulthood: no Secondary Osteoporosis: 1. Type 1 Diabetes: no 2. Hyperthyroidism: no 3. Menopause before 45: no 4. Malnutrition: no 5. Chronic liver disease: no Rheumatoid Arthritis: no Current Tobacco Use: no RISK FACTORS HISTORY OF: Family History of Osteoporosis: yes- mother Active: yes Diet low in dairy products/other sources of calcium: yes Postmenopausal woman: around age 56 MEDICATIONS: losartan, omeprazole, amitriptyline vitamins Thyroid Medications: levothyroxine How Lon years Additional History: EXAM MEASUREMENTS: Bone mineral densitometry was performed using the [employer] Program System. Bone mineral density as measured about the Lumbar spine is: ----- L1-L4(G/cm2): 1.375 T Score Values are as follows: ----- L2: 1.2 ----- L3: 1.3 ----- L4: 2.2 ----- L1-L4: 1.6 Bone mineral density has: decreased -3.3 % since study of: 03.28.2017 Bone mineral density about the R hip (g/cm2): 0850 Bone mineral density about the L hip (g/cm2): 0.835 T Score values are as follows: -----R Neck:-1.4 -----L Neck: -1.5 -----R Total: -1.4 -----L Total: -0.9 Bone mineral density has: decreased -1.4 % since study of: 03.28.2017 IMPRESSION: Osteopenia (T Score between -2.5 and -1). There is slightly increased risk of fracture and the patient may be considered for treatment. Re-Screen 2-5 years. NOTE: T-SCORE=SD OF THE YOUNG ADULT MEAN.
== END | disposition home or self-care (01) ==
LOC: RADBDWWP 14:59
PROVIDERS: ATTEND Obstetrics & Gynecology
DX: M85.80 Other specified disorders of bone density and structure, unspecified site (principal)
CPT/HCPCS: 77080

== ENCOUNTER 2019-12-01 17:53 | Emergency (ER) | payer MEDICARE, OTHER ==
[2019-12-01 17:58] VITALS: RESP 18; TEMP 98.9
[2019-12-01] MEDS ORDERED: ONDANSETRON 4 MG/2 ML VIAL IVP STA (18:15)
[2019-12-01] MEDS ORDERED: SODIUM CHLORIDE 0.9% 1,000 ML IV STA (18:15)
[2019-12-01] MEDS ORDERED: MORPHINE SULFATE 2 MG/ML SYRINGE IVP STA (18:15)
--- NOTE | 2019-12-01 18:26 | ED ---
General Adult HPI - General Chief complaint: Extremity Injury, Lower Stated complaint: Flank pain Time Seen by Provider: 12/01/19 18:06 Source: patient Mode of arrival: ambulatory Limitations: no limitations - History of Present Illness Initial comments: 74-year-old female patient presents to the emergency department today for evaluation of left lower quadrant abdominal pain. Patient states the pain started last evening and persisted throughout the night. Patient states that the pain has been worsening this evening. States that it is sharp stabbing pains of left lower quadrant. Denies radiation of the pain through to her back. She denies any changes to bowel movements or urination. Denies fevers but states she has been chilled. She denies any nausea or vomiting. Patient states she has known diverticulosis but has never had an episode of diverticulitis. She does have history of bowel obstruction with open laparotomy. Patient denies any recent rash, shortness breath, chest pain, diarrhea, constipation, numbness, tingling, dizziness, weakness, hematuria, dysuria, urinary urgency, urinary frequency, headache, visual changes, or any other complaints. - Related Data Home Medications Medication Instructions Recorded Confirmed Amitriptyline HCl 50 mg PO HS 06/14/16 04/27/18 Aspirin 81 mg PO DAILY 06/14/16 04/27/18 Calcium Carbonate/Vitamin D3 2 tab PO DAILY 06/14/16 04/27/18 [Calcium 600-Vit D3 800 Tab] Docusate [Colace] 100 mg PO BID 06/14/16 04/27/18 Fish Oil/Dha/Epa [Fish Oil 1,200 1 cap PO DAILY 06/14/16 04/27/18 mg Fish Oil] L.acidoph,Paracasei, B.lactis 1 cap PO DAILY 06/14/16 04/27/18 [Probiotic] Levothyroxine Sodium [Synthroid] 88 mcg PO QAM 06/14/16 04/27/18 Losartan [Cozaar] 50 mg PO QAM 06/14/16 04/27/18 Multivit-Min/Iron/Folic/Lutein 1 each PO DAILY 06/14/16 04/27/18 [Centrum Silver Women Tablet] Omeprazole 20 mg PO W/SUPPER 06/14/16 04/27/18 Spironolactone 37.5 mg PO DAILY 06/14/16 04/27/18 Ibuprofen [Motrin] 200 - 400 mg PO Q6HR PRN 11/17/17 04/27/18 Previous Rx's Medication Instructions Recorded Ciprofloxacin HCl [Cipro] 750 mg PO BID #20 tablet 12/01/19 metroNIDAZOLE [Flagyl] 500 mg PO QID #40 tab 12/01/19 Allergies Allergy/AdvReac Type Severity Reaction Status Date / Time celecoxib [From Celebrex] Allergy "dizziness,elevated Verified 04/27/18 09:48 b/p" codeine Allergy "upset Verified 04/27/18 09:48 stomach" erythromycin base Allergy "stomach Verified 04/27/18 09:48 issues" hydrocodone Allergy "didn't Verified 04/27/18 09:48 feel well",constipation hydrocodone bitartrate Allergy "didn't Verified 04/27/18 09:48 [From Lortab] feel well",constipation Penicillins Allergy Rash/Hives Verified 04/27/18 09:48 oxycodone HCl [From Percocet] AdvReac constipatio Verified 04/27/18 09:48 n Review of Systems ROS Statement: Those systems with pertinent positive or pertinent negative responses have been documented in the HPI. ROS Other: All systems not noted in ROS Statement are negative. Past Medical History Past Medical History: Cancer, GERD/Reflux, Hypertension, Osteoarthritis (OA), Thyroid Disorder Additional Past Medical History / Comment(s): skin cancer-basal cell,torn cornea,dry eyes, hypothyroid, cataract left eye. History of Any Multi-Drug Resistant Organisms: None Reported Past Surgical History: Hysterectomy, Joint Replacement, Orthopedic Surgery Additional Past Surgical History / Comment(s): rt knee replaced, laparotomy repair to untwist bowel, right cataract ( 04/19/18) Past Anesthesia/Blood Transfusion Reactions: No Reported Reaction Past Psychological History: No Psychological Hx Reported Smoking Status: Never smoker Past Alcohol Use History: None Reported Past Drug Use History: None Reported - Past Family History Father Family Medical History: Myocardial Infarction ([place]) Mother Family Medical History: Cancer Additional Family Medical History / Comment(s): lung problems Brother(s) Family Medical History: Cancer General Exam Limitations: no limitations General appearance: alert, in no apparent distress, other (Physical well- developed, well-nourished elderly female patient in no acute distress. Vital signs upon presentation are temperature 98.9F, pulse 85, respirations 18, blood pressure 160/79, pulse ox 99% on room air.) Respiratory exam: Present: normal lung sounds bilaterally. Absent: respiratory distress, wheezes, rales, rhonchi, stridor Cardiovascular Exam: Present: regular rate, normal rhythm, normal heart sounds. Absent: systolic murmur, diastolic murmur, rubs, gallop, clicks GI/Abdominal exam: Present: soft, tenderness (Left lower quadrant), normal bowel sounds. Absent: distended, guarding, rebound, rigid Neurological exam: Present: alert, oriented X3, CN II-XII intact Psychiatric exam: Present: normal affect, normal mood Skin exam: Present: warm, dry, intact, normal color. Absent: rash Course Vital Signs 12/01/19 12/01/19 12/01/19 17:56 18:51 20:13 Temperature 98.9 F Pulse Rate 85 78 72 Respiratory 18 18 18 Rate Blood Pressure 160/79 166/75 141/69 O2 Sat by Pulse 99 98 100 Oximetry Medical Decision Making - Medical Decision Making 74-year-old female patient presents to the emergency department today for evaluation of left lower quadrant abdominal pain. Physical examination did reveal left lower quadrant tenderness. No vomiting, no fever. Vital signs show no major abnormalities. CT abdomen and pelvis was obtained and did show moderate sigmoid diverticulitis. No evidence for abscess. Patient symptoms and exam findings are consistent with acute diverticulitis. We did discuss risk of abscess development. We will treat outpatient with Cipro and Flagyl. She'll be given medication for symptom management at home. She is instructed to increase fluids. Follow-up with her primary care physician for recheck in 1-2 days. She does have a colonoscopy scheduled with Dr. Mitchell on 12/10/2019. Return parameters were discussed in detail. She verbalizes understanding and agrees with this plan. - Lab Data Result diagrams: 12/01/19 18:37 12/01/19 18:37 Lab Results 12/01/19 12/01/19 12/01/19 Range/Units 18:30 18:37 18:37 WBC 11.4 H (3.8-10.6) k/uL RBC 4.64 (3.80-5.40) m/uL Hgb 12.3 (11.4-16.0) gm/dL Hct 37.9 (34.0-46.0) % MCV 81.7 (80.0-100.0) fL MCH 26.5 (25.0-35.0) pg MCHC 32.5 (31.0-37.0) g/dL RDW 13.8 (11.5-15.5) % Plt Count 255 (150-450) k/uL Neutrophils % 77 % Lymphocytes % 16 % Monocytes % 4 % Eosinophils % 2 % Basophils % 1 % Neutrophils # 8.7 H (1.3-7.7) k/uL Lymphocytes # 1.8 (1.0-4.8) k/uL Monocytes # 0.4 (0-1.0) k/uL Eosinophils # 0.2 (0-0.7) k/uL Basophils # 0.1 (0-0.2) k/uL Sodium 140 (137-145) mmol/L Potassium 3.9 (3.5-5.1) mmol/L Chloride 105 (98-107) mmol/L Carbon Dioxide 24 (22-30) mmol/L Anion Gap 11 mmol/L BUN 12 (7-17) mg/dL Creatinine 0.77 (0.52-1.04) mg/dL Est GFR (CKD-EPI)AfAm 89 (>60 ml/min/1.73 sqM) Est GFR (CKD-EPI)NonAf 77 (>60 ml/min/1.73 sqM) Glucose 98 (74-99) mg/dL Plasma Lactic Acid Anil (0.7-2.0) mmol/L Calcium 9.9 (8.4-10.2) mg/dL Total Bilirubin 0.7 (0.2-1.3) mg/dL AST 33 (14-36) U/L ALT 20 (4-34) U/L Alkaline Phosphatase 91 (38-126) U/L Total Protein 8.3 H (6.3-8.2) g/dL Albumin 4.9 (3.5-5.0) g/dL Amylase 69 (30-110) U/L Lipase 81 (23-300) U/L Urine Color Colorless Urine Appearance Clear (Clear) Urine pH 5.0 (5.0-8.0) Ur Specific [place] 1.004 (1.001-1.035) Urine Protein Negative (Negative) Urine Glucose (UA) Negative (Negative) Urine Ketones Negative (Negative) Urine Blood Negative (Negative) Urine Nitrite Negative (Negative) Urine Bilirubin Negative (Negative) Urine Urobilinogen <2.0 (<2.0) mg/dL Ur Leukocyte Esterase Negative (Negative) 12/01/19 Range/Units 18:37 WBC (3.8-10.6) k/uL RBC (3.80-5.40) m/uL Hgb (11.4-16.0) gm/dL Hct (34.0-46.0) % MCV (80.0-100.0) fL MCH (25.0-35.0) pg MCHC (31.0-37.0) g/dL RDW (11.5-15.5) % Plt Count (150-450) k/uL Neutrophils % % Lymphocytes % % Monocytes % % Eosinophils % % Basophils % % Neutrophils # (1.3-7.7) k/uL Lymphocytes # (1.0-4.8) k/uL Monocytes # (0-1.0) k/uL Eosinophils # (0-0.7) k/uL Basophils # (0-0.2) k/uL Sodium (137-145) mmol/L Potassium (3.5-5.1) mmol/L Chloride (98-107) mmol/L Carbon Dioxide (22-30) mmol/L Anion Gap mmol/L BUN (7-17) mg/dL Creatinine (0.52-1.04) mg/dL Est GFR (CKD-EPI)AfAm (>60 ml/min/1.73 sqM) Est GFR (CKD-EPI)NonAf (>60 ml/min/1.73 sqM) Glucose (74-99) mg/dL Plasma Lactic Acid Anil 1.1 (0.7-2.0) mmol/L Calcium (8.4-10.2) mg/dL Total Bilirubin (0.2-1.3) mg/dL AST (14-36) U/L ALT (4-34) U/L Alkaline Phosphatase (38-126) U/L Total Protein (6.3-8.2) g/dL Albumin (3.5-5.0) g/dL Amylase (30-110) U/L Lipase (23-300) U/L Urine Color Urine Appearance (Clear) Urine pH (5.0-8.0) Ur Specific [place] (1.001-1.035) Urine Protein (Negative) Urine Glucose (UA) (Negative) Urine Ketones (Negative) Urine Blood (Negative) Urine Nitrite (Negative) Urine Bilirubin (Negative) Urine Urobilinogen (<2.0) mg/dL Ur Leukocyte Esterase (Negative) - Radiology Data Radiology results: report reviewed, image reviewed CT abdomen and pelvis with contrast was obtained. Report was reviewed in its entirety. Impression by Dr. Guy shows moderate diverticulitis involving proximal sigmoid colon that appears worse in old computed tomography scan. No drainable fluid collection. No bowel instruction. Disposition Clinical Impression: Diverticulitis Disposition: HOME SELF-CARE Condition: Good Instructions (If sedation given, give patient instructions): Diverticulitis (ED) Additional Instructions: Complete antibiotic prescription in full. Use pain medication as needed for discomfort. Follow up through primary care physician for recheck in 1-2 days. Return to the emergency department if he develops more severe pain, fever, rectal bleeding, or vomiting. Return for any other new, worsening, or concerning symptoms. Prescriptions: Ciprofloxacin HCl [Cipro] 750 mg PO BID #20 tablet metroNIDAZOLE [Flagyl] 500 mg PO QID #40 tab Is patient prescribed a controlled substance at d/c from ED?: No Referrals: Kim Mitchell MD [Primary Care Provider] - 1-2 days Time of Disposition: 20:19
[2019-12-01 18:55] LABS: Basophils # (A) 0.1 k/uL (0-0.2); Basophils % (A) 1 %; Eosinophils # (A) 0.2 k/uL (0-0.7); Eosinophils % (A) 2 %; HCT 37.9 % (34.0-46.0); HGB 12.3 gm/dL (11.4-16.0); Lymphocytes # (A) 1.8 k/uL (1.0-4.8); Lymphocytes % (A) 16 %; MCH 26.5 pg (25.0-35.0); MCHC 32.5 g/dL (31.0-37.0); MCV 81.7 fL (80.0-100.0); Mean Platelet Volume 7.2; Monocytes # (A) 0.4 k/uL (0-1.0); Monocytes % (A) 4 %; Neutrophils # (A) 8.7 k/uL (1.3-7.7); Neutrophils % (A) 77 %; Platelet Count 255 k/uL (150-450); RBC 4.64 m/uL (3.80-5.40); RDW 13.8 % (11.5-15.5); WBC 11.4 k/uL (3.8-10.6)
[2019-12-01 19:01] LABS: Appearance,Urine Clear (Clear); Bilirubin,Urine Negative (Negative); Blood,Urine Negative (Negative); Color,Urine Colorless; Glucose,Urine (UA) Negative (Negative); Ketones,Urine Negative (Negative); Leukocyte Esterase,Urine Negative (Negative); Nitrite,Urine Negative (Negative); Protein,Urine Negative (Negative); Specific Gravity,Urine 1.004 (1.001-1.035); Urobilinogen,Urine <2.0 mg/dL (<2.0)
[2019-12-01 19:04] LABS: Albumin 4.9 g/dL (3.5-5.0); Calcium 9.9 mg/dL (8.4-10.2); Potassium 3.9 mmol/L (3.5-5.1); Total Bilirubin 0.7 mg/dL (0.2-1.3); Total Protein 8.3 g/dL (6.3-8.2)
--- NOTE | 2019-12-01 19:50 | CT ---
EXAMINATION TYPE: CT abdomen pelvis w con DATE OF EXAM: 12/01/2019 COMPARISON: 11/17/2017 HISTORY: Abdominal pain, LT flank pain. CT DLP: 1175.4 mGycm Automated exposure control for dose reduction was used. CONTRAST: Performed with IV Contrast, patient injected with 100 mL of Isovue 300. Lung bases are clear. There is no pleural effusion. Heart size is normal. There is no pericardial eff usion. Liver spleen pancreas gallbladder appear normal. Bile ducts are not dilated. Stomach is intact . There is no adrenal mass. Kidneys show satisfactory contrast opacification. There is no hydronephrosi s. Ureters are not dilated. There is extensive fat stranding around the proximal sigmoid colon with numerous diverticula. Bladder distends smoothly. Ureters are not dilated. There is no inguinal hernia. There is no free flu id in the pelvis. There is no sign of free air. There is no evidence of a bowel obstruction. There is no ascites. There are some spondylotic changes in the lumbar spine. There is no compression fracture. There is a mild degenerative first-degree L4-5 spondylolisthesis. IMPRESSION: There is moderate diverticulitis involving proximal sigmoid colon that appears worse than old CT scan . No drainable fluid collection. No bowel obstruction.
[2019-12-01 20:13] VITALS: PULSE 72
[2019-12-01] MEDS ORDERED: metroNIDAZOLE 500 MG TAB PO STA (20:14)
[2019-12-01] MEDS ORDERED: CIPROFLOXACIN HCL 250 MG TAB PO STA (20:14)
[2019-12-01] MEDS ORDERED: ACET/COD 300 MG/30 MG STARTER PACK 6 TAB BTL PO STA (20:14)
[2019-12-01 20:40] VITALS: BP 131/72
== END 2019-12-01 20:49 | disposition home or self-care (01) ==
LOC: EC 17:53
DX: K57.32 Diverticulitis of large intestine without perforation or abscess without bleeding (principal); I10 Essential (primary) hypertension; E03.9 Hypothyroidism, unspecified; K21.9 Gastro-esophageal reflux disease without esophagitis; M19.90 Unspecified osteoarthritis, unspecified site; Z79.82 Long term (current) use of aspirin; Z79.890 Hormone replacement therapy; Z79.899 Other long term (current) drug therapy; Z88.1 Allergy status to other antibiotic agents; Z88.5 Allergy status to narcotic agent; Z88.0 Allergy status to penicillin; Z88.6 Allergy status to analgesic agent; Z85.828 Personal history of other malignant neoplasm of skin
CPT/HCPCS: 36415; 80053; 82150; 83605; 83690; 85025; 81003; 87040; 74177; 99284; 96374; 96375; 96361 ×2; J2405; J2270; Q9967

== ENCOUNTER 2019-12-09 13:47 | Emergency (ER) | payer MEDICARE ==
[2019-12-09 14:00] VITALS: TEMP 98
[2019-12-09] MEDS ORDERED: ONDANSETRON 4 MG/2 ML VIAL IVP STA (14:15)
[2019-12-09] MEDS ORDERED: SODIUM CHLORIDE 0.9% 1,000 ML IV STA ×2 (14:15)
[2019-12-09] MEDS ORDERED: MORPHINE SULFATE 4 MG/ML SYRINGE IVP STA (14:16)
[2019-12-09 14:32] LABS: Appearance,Urine Clear (Clear); Bilirubin,Urine Negative (Negative); Blood,Urine Negative (Negative); Color,Urine Light Yellow; Glucose,Urine (UA) Negative (Negative); Ketones,Urine Negative (Negative); Leukocyte Esterase,Urine Negative (Negative); Nitrite,Urine Negative (Negative); PH, Urine 5.5 (5.0-8.0); Protein,Urine Negative (Negative); Specific Gravity,Urine 1.002 (1.001-1.035); Urobilinogen,Urine <2.0 mg/dL (<2.0)
[2019-12-09 14:36] LABS: Basophils # (A) 0.1 k/uL (0-0.2); Basophils % (A) 1 %; Eosinophils # (A) 0.2 k/uL (0-0.7); Eosinophils % (A) 2 %; HCT 37.6 % (34.0-46.0); HGB 12.2 gm/dL (11.4-16.0); Lymphocytes # (A) 1.9 k/uL (1.0-4.8); Lymphocytes % (A) 17 %; MCH 26.7 pg (25.0-35.0); MCHC 32.4 g/dL (31.0-37.0); MCV 82.4 fL (80.0-100.0); Mean Platelet Volume 7.1; Monocytes # (A) 0.7 k/uL (0-1.0); Monocytes % (A) 6 %; Neutrophils # (A) 7.7 k/uL (1.3-7.7); Neutrophils % (A) 72 %; Platelet Count 270 k/uL (150-450); RBC 4.56 m/uL (3.80-5.40); RDW 14.2 % (11.5-15.5); WBC 10.7 k/uL (3.8-10.6)
[2019-12-09 14:46] LABS: Albumin 4.5 g/dL (3.5-5.0); Calcium 9.2 mg/dL (8.4-10.2); Potassium 3.6 mmol/L (3.5-5.1); Total Bilirubin 0.5 mg/dL (0.2-1.3); Total Protein 7.6 g/dL (6.3-8.2)
[2019-12-09 14:54] LABS: INR 1.1 (<1.2); Prothrombin Time 11.2 sec (9.0-12.0)
--- NOTE | 2019-12-09 14:57 | XR ---
EXAMINATION TYPE: XR KUB DATE OF EXAM: 12/09/2019 2:51 PM CLINICAL HISTORY: Abdominal pain, nausea, and vomiting with history of diverticulitis. TECHNIQUE: Single upright image of the abdomen is obtained. COMPARISON: None. FINDINGS: Air-fluid levels are seen within the nondilated right hemicolon. No dilated large or small bowel. No pneumoperitoneum. Lung bases are well aerated. Severe degenerative change of the lower lumb ar spine and mild levoscoliosis. No suspicious calcifications in the abdomen or pelvis. IMPRESSION: Nonobstructive bowel gas pattern. Few air-fluid levels in the right hemicolon suggest mil d ileus/malabsorption.
--- NOTE | 2019-12-09 15:59 | ED ---
Abdominal Pain HPI - General Chief Complaint: Abdominal Pain Stated Complaint: Abd pain Time Seen by Provider: 12/09/19 14:05 Source: patient, RN notes reviewed, old records reviewed Mode of arrival: ambulatory Limitations: no limitations - History of Present Illness Initial Comments: Is a 74-year-old female, recently treated for diverticulitis with a course of Cipro and Flagyl. Patient reports that she is on day 7 of her treatment. She states that the past 2 day she's had increased nausea and now left upper quadrant abdominal pain. She reports that her pain initially subsided after she started taking antibiotics and is all lower pain. This is a different pain in his upper abdomen. She reports that she's had no fevers or chills. Denies any vomiting. She states she's had some normal stools. - Related Data Home Medications Medication Instructions Recorded Confirmed Amitriptyline HCl 50 mg PO HS 06/14/16 04/27/18 Aspirin 81 mg PO DAILY 06/14/16 04/27/18 Calcium Carbonate/Vitamin D3 2 tab PO DAILY 06/14/16 04/27/18 [Calcium 600-Vit D3 800 Tab] Docusate [Colace] 100 mg PO BID 06/14/16 04/27/18 Fish Oil/Dha/Epa [Fish Oil 1,200 1 cap PO DAILY 06/14/16 04/27/18 mg Fish Oil] L.acidoph,Paracasei, B.lactis 1 cap PO DAILY 06/14/16 04/27/18 [Probiotic] Levothyroxine Sodium [Synthroid] 88 mcg PO QAM 06/14/16 04/27/18 Losartan [Cozaar] 50 mg PO QAM 06/14/16 04/27/18 Multivit-Min/Iron/Folic/Lutein 1 each PO DAILY 06/14/16 04/27/18 [Centrum Silver Women Tablet] Omeprazole 20 mg PO W/SUPPER 06/14/16 04/27/18 Spironolactone 37.5 mg PO DAILY 06/14/16 04/27/18 Ibuprofen [Motrin] 200 - 400 mg PO Q6HR PRN 11/17/17 04/27/18 Previous Rx's Medication Instructions Recorded Ciprofloxacin HCl [Cipro] 750 mg PO BID #20 tablet 12/01/19 metroNIDAZOLE [Flagyl] 500 mg PO QID #40 tab 12/01/19 Ondansetron [Zofran] 4 mg PO Q8HR PRN #8 tab 12/09/19 Allergies Allergy/AdvReac Type Severity Reaction Status Date / Time celecoxib [From Celebrex] Allergy "dizziness,elevated Verified 12/09/19 13:58 b/p" codeine Allergy "upset Verified 12/09/19 13:58 stomach" erythromycin base Allergy "stomach Verified 12/09/19 13:58 issues" hydrocodone Allergy "didn't Verified 12/09/19 13:58 feel well",constipation hydrocodone bitartrate Allergy "didn't Verified 12/09/19 13:58 [From Lortab] feel well",constipation Penicillins Allergy Rash/Hives Verified 12/09/19 13:58 oxycodone HCl [From Percocet] AdvReac constipatio Verified 12/09/19 13:58 n Review of Systems ROS Statement: Those systems with pertinent positive or pertinent negative responses have been documented in the HPI. ROS Other: All systems not noted in ROS Statement are negative. Past Medical History Past Medical History: Cancer, GERD/Reflux, Hypertension, Osteoarthritis (OA), Thyroid Disorder Additional Past Medical History / Comment(s): skin cancer-basal cell,torn cornea,dry eyes, hypothyroid, cataract left eye. History of Any Multi-Drug Resistant Organisms: None Reported Past Surgical History: Hysterectomy, Joint Replacement, Orthopedic Surgery Additional Past Surgical History / Comment(s): rt knee replaced, laparotomy repair to untwist bowel, right cataract ( 04/19/18) Past Anesthesia/Blood Transfusion Reactions: No Reported Reaction Past Psychological History: No Psychological Hx Reported Smoking Status: Never smoker Past Alcohol Use History: Rare Past Drug Use History: None Reported - Past Family History Father Family Medical History: Myocardial Infarction (IA) Mother Family Medical History: Cancer Additional Family Medical History / Comment(s): lung problems Brother(s) Family Medical History: Cancer General Exam - General Exam Comments Initial Comments: 74-year-old female. Alert and oriented 3. No significant distress. Limitations: no limitations Head exam: Present: atraumatic, normocephalic, normal inspection Eye exam: Present: normal appearance, PERRL, EOMI. Absent: scleral icterus, conjunctival injection, periorbital swelling ENT exam: Present: normal exam, mucous membranes moist Neck exam: Present: normal inspection. Absent: tenderness, meningismus, lymphadenopathy Respiratory exam: Present: normal lung sounds bilaterally. Absent: respiratory distress, wheezes, rales, rhonchi, stridor Cardiovascular Exam: Present: regular rate GI/Abdominal exam: Present: soft, tenderness (Left upper quadrant tenderness), normal bowel sounds. Absent: distended, guarding, rebound, rigid Extremities exam: Present: normal inspection, full ROM, normal capillary refill. Absent: tenderness, pedal edema, joint swelling, calf tenderness Back exam: Present: normal inspection Neurological exam: Present: alert, oriented X3, CN II-XII intact Psychiatric exam: Present: normal affect, normal mood Skin exam: Present: warm, dry, intact, normal color. Absent: rash Course Vital Signs 12/09/19 12/09/19 12/09/19 13:57 14:00 14:42 Temperature 98.0 F Pulse Rate 84 Respiratory 16 16 Rate Blood Pressure 118/57 O2 Sat by Pulse 99 98 Oximetry 12/09/19 12/09/19 12/09/19 15:00 15:30 16:00 Temperature Pulse Rate 76 Respiratory Rate Blood Pressure 126/75 117/66 115/62 O2 Sat by Pulse 97 97 98 Oximetry 12/09/19 12/09/19 12/09/19 16:30 17:00 17:30 Temperature Pulse Rate Respiratory Rate Blood Pressure 118/58 129/71 118/72 O2 Sat by Pulse 97 98 98 Oximetry 12/09/19 17:54 Temperature Pulse Rate 62 Respiratory 20 Rate Blood Pressure 122/73 O2 Sat by Pulse 98 Oximetry Medical Decision Making - Medical Decision Making 74 year old female with left upper quadrant abdominal pain and nausea. Patient is recently finishing treatment for diveriticulitis. Labs reviewed today and are unremarkble. Discussed repeat CT for concern for complication from diveticulitis, including abscess or perforation. CT scan shows improvement of diverticulitis, no signs of abscess. PAtient informed of these results. Discussed finishing her antibiotics and discussed she can have Rx for nausea medication. - Lab Data Result diagrams: 12/09/19 14:20 12/09/19 14:20 Lab Results 12/09/19 12/09/19 12/09/19 Range/Units 14:20 14:20 14:20 WBC 10.7 H (3.8-10.6) k/uL RBC 4.56 (3.80-5.40) m/uL Hgb 12.2 (11.4-16.0) gm/dL Hct 37.6 (34.0-46.0) % MCV 82.4 (80.0-100.0) fL MCH 26.7 (25.0-35.0) pg MCHC 32.4 (31.0-37.0) g/dL RDW 14.2 (11.5-15.5) % Plt Count 270 (150-450) k/uL Neutrophils % 72 % Lymphocytes % 17 % Monocytes % 6 % Eosinophils % 2 % Basophils % 1 % Neutrophils # 7.7 (1.3-7.7) k/uL Lymphocytes # 1.9 (1.0-4.8) k/uL Monocytes # 0.7 (0-1.0) k/uL Eosinophils # 0.2 (0-0.7) k/uL Basophils # 0.1 (0-0.2) k/uL PT 11.2 (9.0-12.0) sec INR 1.1 (<1.2) APTT 23.0 (22.0-30.0) sec Sodium 138 (137-145) mmol/L Potassium 3.6 (3.5-5.1) mmol/L Chloride 104 (98-107) mmol/L Carbon Dioxide 23 (22-30) mmol/L Anion Gap 11 mmol/L BUN 13 (7-17) mg/dL Creatinine 0.82 (0.52-1.04) mg/dL Est GFR (CKD-EPI)AfAm 82 (>60 ml/min/1.73 sqM) Est GFR (CKD-EPI)NonAf 71 (>60 ml/min/1.73 sqM) Glucose 97 (74-99) mg/dL Calcium 9.2 (8.4-10.2) mg/dL Total Bilirubin 0.5 (0.2-1.3) mg/dL AST 33 (14-36) U/L ALT 19 (4-34) U/L Alkaline Phosphatase 64 (38-126) U/L Total Protein 7.6 (6.3-8.2) g/dL Albumin 4.5 (3.5-5.0) g/dL Amylase 58 (30-110) U/L Lipase 170 (23-300) U/L Urine Color Urine Appearance (Clear) Urine pH (5.0-8.0) Ur Specific [place] (1.001-1.035) Urine Protein (Negative) Urine Glucose (UA) (Negative) Urine Ketones (Negative) Urine Blood (Negative) Urine Nitrite (Negative) Urine Bilirubin (Negative) Urine Urobilinogen (<2.0) mg/dL Ur Leukocyte Esterase (Negative) 12/09/19 Range/Units 14:20 WBC (3.8-10.6) k/uL RBC (3.80-5.40) m/uL Hgb (11.4-16.0) gm/dL Hct (34.0-46.0) % MCV (80.0-100.0) fL MCH (25.0-35.0) pg MCHC (31.0-37.0) g/dL RDW (11.5-15.5) % Plt Count (150-450) k/uL Neutrophils % % Lymphocytes % % Monocytes % % Eosinophils % % Basophils % % Neutrophils # (1.3-7.7) k/uL Lymphocytes # (1.0-4.8) k/uL Monocytes # (0-1.0) k/uL Eosinophils # (0-0.7) k/uL Basophils # (0-0.2) k/uL PT (9.0-12.0) sec INR (<1.2) APTT (22.0-30.0) sec Sodium (137-145) mmol/L Potassium (3.5-5.1) mmol/L Chloride (98-107) mmol/L Carbon Dioxide (22-30) mmol/L Anion Gap mmol/L BUN (7-17) mg/dL Creatinine (0.52-1.04) mg/dL Est GFR (CKD-EPI)AfAm (>60 ml/min/1.73 sqM) Est GFR (CKD-EPI)NonAf (>60 ml/min/1.73 sqM) Glucose (74-99) mg/dL Calcium (8.4-10.2) mg/dL Total Bilirubin (0.2-1.3) mg/dL AST (14-36) U/L ALT (4-34) U/L Alkaline Phosphatase (38-126) U/L Total Protein (6.3-8.2) g/dL Albumin (3.5-5.0) g/dL Amylase (30-110) U/L Lipase (23-300) U/L Urine Color Light Yellow Urine Appearance Clear (Clear) Urine pH 5.5 (5.0-8.0) Ur Specific [place] 1.002 (1.001-1.035) Urine Protein Negative (Negative) Urine Glucose (UA) Negative (Negative) Urine Ketones Negative (Negative) Urine Blood Negative (Negative) Urine Nitrite Negative (Negative) Urine Bilirubin Negative (Negative) Urine Urobilinogen <2.0 (<2.0) mg/dL Ur Leukocyte Esterase Negative (Negative) 12/09/19 16:08 EKG performed at 1431 shows normal sinus rhythm normal ECG. Ventricular rate of 90 81 bpm period. It was 200 ms. QS duration is 84 ms. QT QTc is 386/440 ms. - Radiology Data Radiology results: report reviewed CT shows improving acute sigmoid diverticulitis in comparison to prior. No abscess or pneumoperitoneum. Disposition Clinical Impression: Abdominal pain, left upper quadrant, Hx of diverticulitis of colon, Nausea Disposition: HOME SELF-CARE Condition: Good Instructions (If sedation given, give patient instructions): Diverticulitis (ED) Additional Instructions: Patient advised to increase fiber in her diet with using daily Metamucil or MiraLAX. Finish her antibiotics as previously prescribed. Follow-up with your primary care physician. Also using the nausea medicine as needed. Make sure you're taking the rest of your antibiotics with a small amount of crackers or snacks. Return to the ED if any alarming signs or symptoms occur. Prescriptions: Ondansetron [Zofran] 4 mg PO Q8HR PRN #8 tab PRN Reason: Nausea And Vomiting Is patient prescribed a controlled substance at d/c from ED?: No Referrals: Kim Mitchell MD [Primary Care Provider] - 1-2 days Time of Disposition: 17:39
--- NOTE | 2019-12-09 17:23 | CT ---
EXAMINATION TYPE: CT abdomen pelvis w con DATE OF EXAM: 12/09/2019 HISTORY: abdominal pain, hx of diverticulitis CT DLP: 1129.2mGycm Automated Exposure Control for Dose Reduction was Utilized. CONTRAST: CT scan of the abdomen and pelvis is performed with IV Contrast, patient injected with 100 mL of Isov ue 300. COMPARISON: 12/01/2019 FINDINGS: LUNG BASES: Minimal bibasilar subsegmental dependent atelectasis. LIVER/GB: Probable focal fatty infiltration in the left hepatic lobe near the fissure for the falcifo rm ligament. No radiopaque gallstones. PANCREAS: No significant abnormality is seen. SPLEEN: No splenomegaly. ADRENALS: No significant abnormality is seen. KIDNEYS: No hydronephrosis. BOWEL: There is diffuse thickening of the sigmoid colon surrounding numerous diverticula. Inflammator y fat stranding has improved from the prior as has adjacent fascial thickening. No new pericolonic fl uid collection to suggest abscess. Trace fluid along the left lateral conal fascia. No pneumoperitone um. UTERUS/ADNEXA: Uterus is surgically absent. LYMPH NODES: No greater than 1cm abdominal or pelvic lymph nodes are appreciated. OSSEOUS STRUCTURES: Degenerative change of the spine. OTHER: Ventral diastases recti. IMPRESSION: Improving acute sigmoid diverticulitis in comparison to the recent prior. No new pericolo riya abscess nor pneumoperitoneum.
[2019-12-09] MEDS ORDERED: ONDANSETRON 4 MG ODT STARTER PACK 2 TAB BTL PO STA (17:45)
[2019-12-09 17:55] VITALS: BP 122/73; PULSE 62; RESP 20
== END 2019-12-09 17:55 | disposition home or self-care (01) ==
LOC: EC 13:47
DX: R10.12 Left upper quadrant pain (principal); R11.0 Nausea; Z87.19 Personal history of other diseases of the digestive system; I10 Essential (primary) hypertension; K21.9 Gastro-esophageal reflux disease without esophagitis; E03.9 Hypothyroidism, unspecified; Z79.890 Hormone replacement therapy; Z79.82 Long term (current) use of aspirin; Z79.899 Other long term (current) drug therapy; Z88.6 Allergy status to analgesic agent; Z88.5 Allergy status to narcotic agent; Z88.1 Allergy status to other antibiotic agents; Z88.0 Allergy status to penicillin; Z88.8 Allergy status to other drugs, medicaments and biological substances; Z96.651 Presence of right artificial knee joint; Z85.828 Personal history of other malignant neoplasm of skin
CPT/HCPCS: 36415; 93005; 80053; 82150; 83690; 85025; 85610; 85730; 81003; 74018; 74177; 99285; 96374; 96375; 96361 ×3; J2270; J2405; S0119; Q9967

== ENCOUNTER → 2020-04-21 | Outpatient (CLI) | payer MEDICARE ==
--- NOTE | 2020-04-22 12:03 | MM ---
Reason for exam: screening (asymptomatic). Last mammogram was performed 1 year and 1 month ago. History: Patient is postmenopausal and history of other cancer. Physical Findings: A clinical breast exam by your physician is recommended on an annual basis and results should be correlated with mammographic findings. MG Screening Mammo w CAD Bilateral CC and MLO view(s) were taken. Prior study comparison: March 26, 2019, bilateral MG 3d screening mammo w/cad. March 23, 2018, bilateral MG 3d diag mammo w/cad RIKI. There are scattered fibroglandular densities. There is no discrete abnormality. No significant changes when compared with prior studies. ASSESSMENT: Negative, BI-RAD 1 RECOMMENDATION: Routine screening mammogram of both breasts in 1 year.
== END | disposition home or self-care (01) ==
LOC: RADMAMWWP 09:32
PROVIDERS: ATTEND Obstetrics & Gynecology
DX: Z12.31 Encounter for screening mammogram for malignant neoplasm of breast (principal)
CPT/HCPCS: 77067

== ENCOUNTER 2020-06-17 10:06 | Day surgery (SDC) | payer MEDICARE ==
[2020-06-12 15:29] VITALS: BMI 29.0
[~2020-06-17 10:06] MED LIST changes: -CYCLOPENTOLATE 1% OPHTH SOLN 2 ML BTL OP ONE; +LACTATED RINGERS 1,000 ML IV SCH; +LIDOCAINE 1% (10MG/ML) FOR IV START INTRADERMA PRN; -MOXIFLOXACIN HCL 0.5% DROPS 3 ML BTL OP ONE; -PHENYLEPHRINE 2.5% OPHTH DRP 2ML OP NR; -TETRACAINE 0.5% OPHTH (PF) DROPS 4 ML BTL OP ONE; -TIMOLOL 0.5% OPHTH DROPS 5 ML BTL OP ONE
[2020-06-17 10:33] VITALS: TEMP 97.3
[2020-06-17] MEDS ORDERED: PROPOFOL 10 MG/ML 20 ML VIAL IV ONE (11:07)
--- NOTE | 2020-06-17 11:10 | P.GSHP ---
History of Present Illness H&P Date: 06/17/20 Chief Complaint: Rectal bleeding, change in bowel habits, diverticulitis 74-year-old female known to our service. She has had multiple recent episodes of diverticulitis. Intermittent rectal bleeding at times. Last colonoscopy 4 years ago. Past Medical History Past Medical History: Cancer, GERD/Reflux, Hypertension, Osteoarthritis (OA), Thyroid Disorder Additional Past Medical History / Comment(s): skin cancer-basal cell,torn cornea,dry eyes, hypothyroid, , diverticulitis History of Any Multi-Drug Resistant Organisms: None Reported Past Surgical History: Hysterectomy, Joint Replacement, Orthopedic Surgery Additional Past Surgical History / Comment(s): rt knee replaced, laparotomy repair to untwist bowel, carolin cataract ( 04/19/18) Past Anesthesia/Blood Transfusion Reactions: No Reported Reaction, Motion Sickness Smoking Status: Never smoker - Past Family History Father Family Medical History: Myocardial Infarction (ID) Mother Family Medical History: Cancer Additional Family Medical History / Comment(s): lung problems Brother(s) Family Medical History: Cancer Medications and Allergies Home Medications Medication Instructions Recorded Confirmed Type Aspirin 81 mg PO DAILY 06/14/16 06/17/20 History Calcium Carbonate/Vitamin D3 2 tab PO DAILY 06/14/16 06/17/20 History [Calcium 600-Vit D3 800 Tab] Docusate [Colace] 100 mg PO BID 06/14/16 06/17/20 History Fish Oil/Dha/Epa [Fish Oil 1,200 1 cap PO DAILY 06/14/16 06/17/20 History mg Fish Oil] Levothyroxine Sodium [Synthroid] 88 mcg PO QAM 06/14/16 06/17/20 History Losartan [Cozaar] 50 mg PO QAM 06/14/16 06/17/20 History Multivit-Min/Iron/Folic/Lutein 1 each PO DAILY 06/14/16 06/17/20 History [Centrum Silver Women Tablet] Omeprazole 20 mg PO W/SUPPER 06/14/16 06/17/20 History Spironolactone 37.5 mg PO DAILY 06/14/16 06/17/20 History Ibuprofen [Motrin] 200 - 400 mg PO BID 11/17/17 06/17/20 History Ibuprofen [Advil] 200 mg PO DAILY 06/12/20 06/17/20 History Ibuprofen/Diphenhydramine HCl 1 each PO DAILY 06/12/20 06/17/20 History [Advil Pm Liqui-Gels] Melatonin 10 mg PO HS 06/12/20 06/17/20 History Allergies Allergy/AdvReac Type Severity Reaction Status Date / Time Penicillins Allergy Rash/Hives Verified 06/17/20 10:22 celecoxib [From Celebrex] AdvReac "dizziness,elevated Verified 06/17/20 10:22 b/p" codeine AdvReac "upset Verified 06/17/20 10:22 stomach" erythromycin base AdvReac "stomach Verified 06/17/20 10:22 issues" hydrocodone AdvReac "didn't Verified 06/17/20 10:22 feel well",constipation hydrocodone bitartrate AdvReac "didn't Verified 06/17/20 10:22 [From Lortab] feel well",constipation oxycodone HCl [From Percocet] AdvReac constipatio Verified 06/17/20 10:22 n Surgical - Exam Vital Signs Temp Pulse Resp BP Pulse Ox 97.3 F L 77 18 153/70 99 06/17/20 10:30 06/17/20 10:30 06/17/20 10:30 06/17/20 10:30 06/17/20 10:30 Physical exam: General: Well-developed, well-nourished HEENT: Normocephalic, sclerae nonicteric Abdomen: Nontender, nondistended Extremities: No edema Neuro: Alert and oriented Assessment and Plan (1) Rectal bleeding Narrative/Plan: Will proceed with colonoscopy at this time. Current Visit: Yes Status: Acute Code(s): K62.5 - HEMORRHAGE OF ANUS AND RECTUM SNOMED Code(s): 19225301
--- NOTE | 2020-06-17 11:27 | P.PCN ---
Date of Procedure: 06/17/20 Procedure(s) Performed: PREOPERATIVE DIAGNOSIS: Change in bowel habits, diverticulitis POSTOPERATIVE DIAGNOSIS: Diverticulosis, small rectal polyp, hemorrhoids PROCEDURE: Colonoscopy with biopsy ANESTHESIA: MAC SURGEON: Cornelius Mitchell M.D. SPECIMENS: Rectal polyp ENDOSCOPIC PROCEDURE: The patient was placed on the endoscopy table in the left decubitus position. The Olympus colonoscope was inserted into the anus and passed under direct visualization to the base of the cecum. The appendiceal orifice was visualized. From that point the scope was slowly withdrawn inspecting all surfaces carefully. There were no neoplastic inflammatory or polypoid lesions throughout the cecum, ascending, transverse, descending, and sigmoid colon. In the rectum there was a small superficial polyp that was removed using the cold biopsy forceps. The remainder of the rectum appeared normal. There was extensive left-sided diverticulosis with mild luminal narrowing. No obstruction or significant stricture was seen. The patient had the anus had small internal and external hemorrhoids without evidence of recent or active bleeding. The patient was taken to the recovery room in stable condition per anesthesia guidelines. RECOMMENDATIONS: Await biopsy results. Will discuss possible elective sigmoid resection given the patient's recurrent episodes of diverticulitis.
[2020-06-17 11:32] VITALS: RESP 16
[2020-06-17 11:44] VITALS: BP 115/58; PULSE 78
== END 2020-06-17 12:09 ==
LOC: ORWHC2ENDO 10:06
PROVIDERS: ATTEND Surgery
DX: K57.31 Diverticulosis of large intestine without perforation or abscess with bleeding (principal); K62.1 Rectal polyp; K64.8 Other hemorrhoids; K64.4 Residual hemorrhoidal skin tags; K21.9 Gastro-esophageal reflux disease without esophagitis; I10 Essential (primary) hypertension; M19.90 Unspecified osteoarthritis, unspecified site; H04.123 Dry eye syndrome of bilateral lacrimal glands; E03.9 Hypothyroidism, unspecified; Z85.828 Personal history of other malignant neoplasm of skin; Z86.69 Personal history of other diseases of the nervous system and sense organs; Z90.710 Acquired absence of both cervix and uterus; Z96.652 Presence of left artificial knee joint; Z98.890 Other specified postprocedural states; Z87.19 Personal history of other diseases of the digestive system; Z98.41 Cataract extraction status, right eye; Z98.42 Cataract extraction status, left eye; Z87.898 Personal history of other specified conditions; Z79.82 Long term (current) use of aspirin; Z79.890 Hormone replacement therapy; Z79.899 Other long term (current) drug therapy; Z79.1 Long term (current) use of non-steroidal anti-inflammatories (NSAID); Z88.0 Allergy status to penicillin; Z88.6 Allergy status to analgesic agent; Z88.5 Allergy status to narcotic agent; Z88.1 Allergy status to other antibiotic agents; Z82.49 Family history of ischemic heart disease and other diseases of the circulatory system; Z80.9 Family history of malignant neoplasm, unspecified; Z82.5 Family history of asthma and other chronic lower respiratory diseases
CPT/HCPCS: 88305; 45380; J2704

== ENCOUNTER → 2021-04-23 | Outpatient (CLI) | payer MEDICARE ==
--- NOTE | 2021-04-24 11:43 | MM ---
Reason for exam: screening (asymptomatic). Last mammogram was performed 1 year ago. History: Patient is postmenopausal and history of other cancer. Took hormonal contraceptives for 10 years. Physical Findings: A clinical breast exam by your physician is recommended on an annual basis and results should be correlated with mammographic findings. MG Screening Mammo w CAD Bilateral CC and MLO view(s) were taken. Prior study comparison: April 21, 2020, bilateral MG screening mammo w CAD. March 26, 2019, bilateral MG 3d screening mammo w/cad. There are scattered fibroglandular densities. No significant changes when compared with prior studies. ASSESSMENT: Benign, BI-RAD 2 RECOMMENDATION: Routine screening mammogram of both breasts in 1 year.
--- NOTE | 2021-04-25 06:24 | BD ---
EXAMINATION TYPE: Axial Bone Density DATE OF EXAM: 04/23/2021 COMPARISON: 04.03.2019 DEXA bone scan CLINICAL HISTORY: 75 YR OLD FEMALE......ICD-10 CODE: Z78.0 POST MENOPAUSAL Height: 65 Weight: 182 FRAX RISK QUESTIONS: History of Fracture in Adulthood: YES RISK FACTORS HISTORY OF: HX OF ANKLE FX >50 YRS OLD Family History of Osteoporosis: YES, MOTHER, NO HIP FX Diet low in dairy products/other sources of calcium: YES Postmenopausal woman: YES, AT AGE 56 Hyperparathyroidism: NO Adrenal Insufficiency: NO MEDICATIONS: Thyroid Medications: YES, SYNTHROID FOR ABOUT 10 YRS Additional Medications: BP MEDS, REFLUX, VIT D AND CALCIUM Additional History: RT TKR, REFLUX, HYPERTENSION, EXAM MEASUREMENTS: Bone mineral densitometry was performed using the [employer] System. Bone mineral density as measured about the Lumbar spine is: ----- L1-L4(G/cm2): 1.438 T Score Values are as follows: ----- L1: 1.0 ----- L2: 1.3 ----- L3: 3.0 ----- L4: 3.1 ----- L1-L4: 2.2 Bone mineral density has: Increased 7.7% since study of: 04.03.2019 Bone mineral density about the R hip (g/cm2): 0.869 Bone mineral density about the L hip (g/cm2): 0.872 T Score values are as follows: -----R Neck: -1.2 -----L Neck: -1.4 -----R Total: -1.1 -----L Total: -1.1 Bone mineral density has: Increased 1.0% since study of: 04.03.2019 FRAX%s: THERE IS A 16.1% CHANCE FOR A MAJOR OSTEOPOROTIC FX AND A 2.7% FOR HIP......PROBABILITY FO R FX IN 10 YRS TIME IMPRESSION: Osteopenia (T Score between -2.5 and -1) remains present. There remains slightly increased risk of fracture and the patient may be considered for treatment. Re-Screen 2-5 years. NOTE: T-SCORE=SD OF THE YOUNG ADULT MEAN.
== END | disposition home or self-care (01) ==
LOC: RADMAMWWP 08:18
PROVIDERS: ATTEND Family Medicine
DX: Z12.31 Encounter for screening mammogram for malignant neoplasm of breast (principal); M85.89 Other specified disorders of bone density and structure, multiple sites
CPT/HCPCS: 77067; 77080

== ENCOUNTER 2021-12-25 07:50 | Observation (INO) | payer MEDICARE ==
[2021-12-25] MEDS ORDERED: SODIUM CHLORIDE 0.9% 1,000 ML IV STA (08:15)
[2021-12-25] MEDS ORDERED: PANTOPRAZOLE 40 MG/10 ML VIAL IVP STA (08:15)
[2021-12-25] MEDS ORDERED: MORPHINE SULFATE 2 MG/ML SYRINGE IVP STA (08:15)
--- NOTE | 2021-12-25 08:17 | ED ---
General Adult HPI - General Chief complaint: Abdominal Pain Stated complaint: diverticulitis Time Seen by Provider: 12/25/21 08:00 Source: patient, RN notes reviewed Mode of arrival: ambulatory Limitations: no limitations - History of Present Illness Initial comments: Patient is a pleasant 36-year-old female presenting to the emergency department with concern for having diverticulitis. Onset of symptoms was just a few days ago. Patient has had similar symptoms approximately 4 times previously. Patient is tolerating oral intake. No constipation or diarrhea. Discomfort is mostly left lower abdomen. Patient has been taking steroids for 4 days for shoulder problems. No fevers. - Related Data Home Medications Medication Instructions Recorded Confirmed Calcium Carbonate/Vitamin D3 2 tab PO DAILY 06/14/16 12/25/21 [Calcium 600-Vit D3 800 Tab] Docusate [Colace] 100 mg PO DAILY 06/14/16 12/25/21 Fish Oil/Dha/Epa [Fish Oil 1,200 1 cap PO DAILY 06/14/16 12/25/21 mg Fish Oil] Levothyroxine Sodium [Synthroid] 88 mcg PO DAILY 06/14/16 12/25/21 Losartan [Cozaar] 50 mg PO DAILY 06/14/16 12/25/21 Multivit-Min/Iron/Folic/Lutein 1 tab PO DAILY 06/14/16 12/25/21 [Centrum Silver Women Tablet] Omeprazole 20 mg PO HS 06/14/16 12/25/21 Spironolactone 37.5 mg PO DAILY 06/14/16 12/25/21 Ibuprofen [Advil] 400 mg PO DAILY PRN 06/12/20 12/25/21 Melatonin 10 mg PO HS PRN 06/12/20 12/25/21 Albuterol Sulfate [Proair Hfa] 2 puff INHALATION RT-QID PRN 12/25/21 12/25/21 Amitriptyline HCl [Elavil] 25 mg PO HS 12/25/21 12/25/21 Aspirin EC [Ecotrin Low Dose] 81 mg PO DAILY 12/25/21 12/25/21 Cholecalciferol [Vitamin D3 (25 100 mcg PO DAILY 12/25/21 12/25/21 Mcg = 1000 Iu)] Iron 36 mg PO DAILY 12/25/21 12/25/21 polyethylene glycoL 3350 [Miralax] 17 gm PO DAILY PRN 12/25/21 12/25/21 predniSONE See Taper PO DIRECTED 12/25/21 12/25/21 Allergies Allergy/AdvReac Type Severity Reaction Status Date / Time Penicillins Allergy Rash/Hives Verified 12/25/21 11:32 celecoxib [From Celebrex] AdvReac "dizziness,elevated Verified 12/25/21 11:32 b/p" codeine AdvReac "upset Verified 12/25/21 11:32 stomach" erythromycin base AdvReac "stomach Verified 12/25/21 11:32 issues" hydrocodone AdvReac "didn't Verified 12/25/21 11:32 feel well",constipation hydrocodone bitartrate AdvReac "didn't Verified 12/25/21 11:32 [From Lortab] feel well",constipation oxycodone HCl [From Percocet] AdvReac constipatio Verified 12/25/21 11:32 n Review of Systems ROS Statement: Those systems with pertinent positive or pertinent negative responses have been documented in the HPI. ROS Other: All systems not noted in ROS Statement are negative. Constitutional: Denies: fever Eyes: Denies: eye pain ENT: Denies: ear pain Respiratory: Denies: cough Cardiovascular: Denies: chest pain Endocrine: Denies: fatigue Gastrointestinal: Reports: as per HPI, abdominal pain Genitourinary: Denies: dysuria Musculoskeletal: Reports: as per HPI. Denies: back pain Skin: Denies: rash Neurological: Denies: weakness Past Medical History Past Medical History: Cancer, GERD/Reflux, Hypertension, Osteoarthritis (OA), Thyroid Disorder Additional Past Medical History / Comment(s): skin cancer-basal cell,torn cornea,dry eyes, hypothyroid, , diverticulitis History of Any Multi-Drug Resistant Organisms: None Reported Past Surgical History: Hysterectomy, Joint Replacement, Orthopedic Surgery Additional Past Surgical History / Comment(s): rt knee replaced, laparotomy repair to untwist bowel, carolin cataract ( 04/19/18) Past Anesthesia/Blood Transfusion Reactions: No Reported Reaction, Motion Sickness Past Psychological History: No Psychological Hx Reported Smoking Status: Never smoker Past Alcohol Use History: None Reported - Past Family History Father Family Medical History: Myocardial Infarction ([place]) Mother Family Medical History: Cancer Additional Family Medical History / Comment(s): lung problems Brother(s) Family Medical History: Cancer General Exam Limitations: no limitations General appearance: alert, in no apparent distress Head exam: Present: normocephalic Eye exam: Present: normal appearance Neck exam: Present: normal inspection Respiratory exam: Present: normal lung sounds bilaterally. Absent: chest wall tenderness Cardiovascular Exam: Present: regular rate, normal rhythm Expanded Peripheral pulses: 2+: Posterior Tibialis (R), Posterior Tibialis (L) GI/Abdominal exam: Present: soft, tenderness (Mild to moderate tenderness mostly left lower quadrant), normal bowel sounds. Absent: distended, guarding, rebound, rigid, pulsatile mass Extremities exam: Present: normal inspection Neurological exam: Present: alert Psychiatric exam: Present: normal affect, normal mood Skin exam: Present: normal color Course Vital Signs 12/25/21 12/25/21 12/25/21 07:56 08:48 10:24 Temperature 97.1 F L Pulse Rate 79 74 78 Respiratory 20 18 18 Rate Blood Pressure 157/79 138/74 141/93 O2 Sat by Pulse 99 97 100 Oximetry Medical Decision Making - Medical Decision Making Patient reevaluated. Exam unchanged. Patient still complains of discomfort. Secondary to continued discomfort, Dr. Alston has some paged for admission covering Kim Reaves - Lab Data Result diagrams: 12/25/21 08:36 12/25/21 08:36 Lab Results 12/25/21 12/25/21 12/25/21 Range/Units 08:36 08:36 08:36 WBC 11.8 H (3.8-10.6) k/uL RBC 4.34 (3.80-5.40) m/uL Hgb 13.1 (11.4-16.0) gm/dL Hct 37.5 (34.0-46.0) % MCV 86.4 (80.0-100.0) fL MCH 30.1 (25.0-35.0) pg MCHC 34.8 (31.0-37.0) g/dL RDW 13.8 (11.5-15.5) % Plt Count 204 (150-450) k/uL MPV 7.1 Neutrophils % 77 % Lymphocytes % 18 % Monocytes % 4 % Eosinophils % 0 % Basophils % 0 % Neutrophils # 9.1 H (1.3-7.7) k/uL Lymphocytes # 2.1 (1.0-4.8) k/uL Monocytes # 0.5 (0-1.0) k/uL Eosinophils # 0.0 (0-0.7) k/uL Basophils # 0.0 (0-0.2) k/uL PT 10.8 (9.0-12.0) sec INR 1.0 (<1.2) APTT 22.1 (22.0-30.0) sec Sodium (137-145) mmol/L Potassium (3.5-5.1) mmol/L Chloride (98-107) mmol/L Carbon Dioxide (22-30) mmol/L Anion Gap mmol/L BUN (7-17) mg/dL Creatinine (0.52-1.04) mg/dL Est GFR (CKD-EPI)AfAm (>60 ml/min/1.73 sqM) Est GFR (CKD-EPI)NonAf (>60 ml/min/1.73 sqM) Glucose (74-99) mg/dL Calcium (8.4-10.2) mg/dL Total Bilirubin (0.2-1.3) mg/dL AST (14-36) U/L ALT (4-34) U/L Alkaline Phosphatase (38-126) U/L Total Protein (6.3-8.2) g/dL Albumin (3.5-5.0) g/dL Amylase (30-110) U/L Lipase (23-300) U/L Urine Color Light Yellow Urine Appearance Clear (Clear) Urine pH 6.5 (5.0-8.0) Ur Specific [place] 1.012 (1.001-1.035) Urine Protein Negative (Negative) Urine Glucose (UA) Negative (Negative) Urine Ketones Negative (Negative) Urine Blood Negative (Negative) Urine Nitrite Negative (Negative) Urine Bilirubin Negative (Negative) Urine Urobilinogen <2.0 (<2.0) mg/dL Ur Leukocyte Esterase Negative (Negative) 12/25/21 Range/Units 08:36 WBC (3.8-10.6) k/uL RBC (3.80-5.40) m/uL Hgb (11.4-16.0) gm/dL Hct (34.0-46.0) % MCV (80.0-100.0) fL MCH (25.0-35.0) pg MCHC (31.0-37.0) g/dL RDW (11.5-15.5) % Plt Count (150-450) k/uL MPV Neutrophils % % Lymphocytes % % Monocytes % % Eosinophils % % Basophils % % Neutrophils # (1.3-7.7) k/uL Lymphocytes # (1.0-4.8) k/uL Monocytes # (0-1.0) k/uL Eosinophils # (0-0.7) k/uL Basophils # (0-0.2) k/uL PT (9.0-12.0) sec INR (<1.2) APTT (22.0-30.0) sec Sodium 136 L (137-145) mmol/L Potassium 3.9 (3.5-5.1) mmol/L Chloride 104 (98-107) mmol/L Carbon Dioxide 25 (22-30) mmol/L Anion Gap 7 mmol/L BUN 19 H (7-17) mg/dL Creatinine 0.78 (0.52-1.04) mg/dL Est GFR (CKD-EPI)AfAm 86 (>60 ml/min/1.73 sqM) Est GFR (CKD-EPI)NonAf 75 (>60 ml/min/1.73 sqM) Glucose 96 (74-99) mg/dL Calcium 9.6 (8.4-10.2) mg/dL Total Bilirubin 0.9 (0.2-1.3) mg/dL AST 26 (14-36) U/L ALT 18 (4-34) U/L Alkaline Phosphatase 49 (38-126) U/L Total Protein 7.4 (6.3-8.2) g/dL Albumin 4.5 (3.5-5.0) g/dL Amylase 66 (30-110) U/L Lipase 63 (23-300) U/L Urine Color Urine Appearance (Clear) Urine pH (5.0-8.0) Ur Specific [place] (1.001-1.035) Urine Protein (Negative) Urine Glucose (UA) (Negative) Urine Ketones (Negative) Urine Blood (Negative) Urine Nitrite (Negative) Urine Bilirubin (Negative) Urine Urobilinogen (<2.0) mg/dL Ur Leukocyte Esterase (Negative) - Radiology Data Radiology results: report reviewed (Computed tomography scan concerning for diverticulitis) Disposition Clinical Impression: Diverticulitis Disposition: ADMITTED IP TO THIS HOSP Is patient prescribed a controlled substance at d/c from ED?: No Referrals: Kim Mitchell MD [Primary Care Provider] - 1-2 days Decision Time: 11:42
[2021-12-25 08:49] LABS: Basophils % (A) 0 %; Eosinophils % (A) 0 %; HCT 37.5 % (34.0-46.0); HGB 13.1 gm/dL (11.4-16.0); Lymphocytes # (A) 2.1 k/uL (1.0-4.8); Lymphocytes % (A) 18 %; MCH 30.1 pg (25.0-35.0); MCHC 34.8 g/dL (31.0-37.0); MCV 86.4 fL (80.0-100.0); Mean Platelet Volume 7.1; Monocytes # (A) 0.5 k/uL (0-1.0); Monocytes % (A) 4 %; Neutrophils # (A) 9.1 k/uL (1.3-7.7); Neutrophils % (A) 77 %; Platelet Count 204 k/uL (150-450); RBC 4.34 m/uL (3.80-5.40); RDW 13.8 % (11.5-15.5); WBC 11.8 k/uL (3.8-10.6)
[2021-12-25 08:54] LABS: Appearance,Urine Clear (Clear); Bilirubin,Urine Negative (Negative); Blood,Urine Negative (Negative); Color,Urine Light Yellow; Glucose,Urine (UA) Negative (Negative); Ketones,Urine Negative (Negative); Leukocyte Esterase,Urine Negative (Negative); Nitrite,Urine Negative (Negative); PH, Urine 6.5 (5.0-8.0); Protein,Urine Negative (Negative); Specific Gravity,Urine 1.012 (1.001-1.035); Urobilinogen,Urine <2.0 mg/dL (<2.0)
[2021-12-25 09:01] LABS: Albumin 4.5 g/dL (3.5-5.0); Calcium 9.6 mg/dL (8.4-10.2); Potassium 3.9 mmol/L (3.5-5.1); Total Bilirubin 0.9 mg/dL (0.2-1.3); Total Protein 7.4 g/dL (6.3-8.2)
[2021-12-25 09:04] LABS: Prothrombin Time 10.8 sec (9.0-12.0)
[2021-12-25 09:05] LABS: Partial Thromboplastin Time 22.1 sec (22.0-30.0)
--- NOTE | 2021-12-25 10:10 | CT ---
EXAMINATION TYPE: CT abdomen pelvis w con DATE OF EXAM: 12/25/2021 COMPARISON: CT dated 12/09/2019 HISTORY: Diverticulitis CT DLP: 974.2 mGycm Automated exposure control for dose reduction was used. TECHNIQUE: Helical acquisition of images was performed from the lung bases through the pelvis. CONTRAST: Performed without Oral Contrast and with IV Contrast, patient injected with 100 ml mL of Isovue 300. FINDINGS: Acute diverticulitis involving the inferior aspect of the descending colon with focal colonic wall th ickening, surrounding fat stranding, adjacent peritoneal reflection thickening and minimal reactive f luid. No definite abscess formation or size of perforation. The colon demonstrates extensive colonic diverticulosis most evident involving the descending colon and the sigmoid colon. No evidence of colonic obstruction. Fecal loading of the colon. Wall thickening of the sigmoid colon, probably related to chronic diverticulosis. Possible very small sliding hiatal hernia, otherwise unr emarkable nondistended stomach. Small second part of the duodenum diverticulum, otherwise unremarkabl e duodenum and small bowel. Stable tiny cyst in the right hepatic dome. Unremarkable liver otherwise. Unremarkable gallbladder, s pleen, pancreas, adrenals and kidneys. Scattered mild arterial atherosclerotic calcifications. Grossl y unremarkable urinary bladder. Previous hysterectomy. Suspected rectal prolapse. Slightly larger right ovarian/adnexal cyst measuring 3.2 cm compared to 2.[address] scan[address] Recom mend correlation with elective pelvic ultrasound results. No suspicious lymphadenopathy or sizable as cites. Unremarkable lung bases. Degenerative changes at L4-5 and L5-S1 with facet osteoarthropathy. N o aggressive bone lesion. IMPRESSION: 1. Acute diverticulitis of the inferior aspect of the descending colon without evidence of perforatio n or abscess formation. 2. Extensive colonic diverticulosis as detailed above. 3. Slightly larger right ovarian/adnexal cyst as described above without suspicious feature, for vladimir elation with elective pelvic ultrasound results. Other incidental findings as described above.
[2021-12-25] MEDS ORDERED: MORPHINE SULFATE 4 MG/ML SYRINGE IVP STA (10:12)
[2021-12-25] MEDS ORDERED: NALOXONE 0.4 MG/ML 1 ML VIAL IV PRN (11:43)
[2021-12-25] MEDS ORDERED: LEVOFLOXACIN 750MG-D5W PMX 750 MG in DEXTROSE/WATER 1 150ML.BAG IVPB STA (11:43)
[2021-12-25] MEDS: SODIUM CHLORIDE 0.9% 1,000 ML IV SCH (12:28)
[2021-12-25] MEDS: metroNIDAZOLE-NS PMX 500 MG in SALINE 1 100ML.BAG IVPB SCH ×2 (12:32→17:18)
[2021-12-25] MEDS: traMADol 50 MG TAB PO PRN (12:39)
[2021-12-25] MEDS ORDERED: MELATONIN 5 MG TABLET PO PRN (12:54)
[2021-12-25] MEDS ORDERED: IBUPROFEN 400 MG TAB PO PRN (12:54)
--- NOTE | 2021-12-25 12:56 | P.HPIM ---
History of Present Illness This is a pleasant 76 resolved female with past medical history of diverticulitis, GERD, hypertension, osteoarthritis, hypothyroidism. Patient presents with left lower quadrant abdominal pain similar to previous attacks of diverticulitis, she had similar 4-5 attacks previously and her surgeon is Dr. Pacheco. No vomiting. No diarrhea. No chest pain or dyspnea. No fever. denies smoking, alcohol or illicit tracts. Vitas looks stable. She has mild leukocytosis of 11.8, rest of CBC, BMP, INR, liver enzymes are unremarkable. Urine analysis is not suspicious of infection CT of the abdomen and pelvis with contrast: Extensive colonic diverticulitis acute diverticulitis of the inferior aspect of the descending colon. Slightly larger right ovary or adnexal cyst Patient states also she takes prednisone 30 mg daily for her rotator cuff Review of Systems CONSTITUTIONAL: No fever, no malaise, no fatigue. HEENT: No recent visual problems or hearing problems. Denied any sore throat. CARDIOVASCULAR: No orthopnea, PND, no palpitations, no syncope. PULMONARY: No shortness of breath, no cough, no hemoptysis. GASTROINTESTINAL: No diarrhea, no nausea, no vomiting,. Normoactive bowel sounds. NEUROLOGICAL: No headaches, no weakness, no numbness. HEMATOLOGICAL: Denies any bleeding or petechiae. GENITOURINARY: Denies any burning micturition, frequency, or urgency. MUSCULOSKELETAL/RHEUMATOLOGICAL: Denies any joint pain, swelling, or any muscle pain. ENDOCRINE: Denies any polyuria or polydipsia. Past Medical History Past Medical History: Cancer, GERD/Reflux, Hypertension, Osteoarthritis (OA), Thyroid Disorder Additional Past Medical History / Comment(s): skin cancer-basal cell,torn cornea,dry eyes, hypothyroid, , diverticulitis History of Any Multi-Drug Resistant Organisms: None Reported Past Surgical History: Hysterectomy, Joint Replacement, Orthopedic Surgery Additional Past Surgical History / Comment(s): rt knee replaced, laparotomy rep air to untwist bowel, carolin cataract ( 04/19/18) Past Anesthesia/Blood Transfusion Reactions: No Reported Reaction, Motion Sickness Past Psychological History: No Psychological Hx Reported Smoking Status: Never smoker Past Alcohol Use History: None Reported - Past Family History Father Family Medical History: Myocardial Infarction ([place]) Mother Family Medical History: Cancer Additional Family Medical History / Comment(s): lung problems Brother(s) Family Medical History: Cancer Medications and Allergies Home Medications Medication Instructions Recorded Confirmed Type Calcium Carbonate/Vitamin D3 2 tab PO DAILY 06/14/16 12/25/21 History [Calcium 600-Vit D3 800 Tab] Docusate [Colace] 100 mg PO DAILY 06/14/16 12/25/21 History Fish Oil/Dha/Epa [Fish Oil 1,200 1 cap PO DAILY 06/14/16 12/25/21 History mg Fish Oil] Levothyroxine Sodium [Synthroid] 88 mcg PO DAILY 06/14/16 12/25/21 History Losartan [Cozaar] 50 mg PO DAILY 06/14/16 12/25/21 History Multivit-Min/Iron/Folic/Lutein 1 tab PO DAILY 06/14/16 12/25/21 History [Centrum Silver Women Tablet] Omeprazole 20 mg PO HS 06/14/16 12/25/21 History Spironolactone 37.5 mg PO DAILY 06/14/16 12/25/21 History Ibuprofen [Advil] 400 mg PO DAILY PRN 06/12/20 12/25/21 History Melatonin 10 mg PO HS PRN 06/12/20 12/25/21 History Albuterol Sulfate [Proair Hfa] 2 puff INHALATION RT-QID PRN 12/25/21 12/25/21 History Amitriptyline HCl [Elavil] 25 mg PO HS 12/25/21 12/25/21 History Aspirin EC [Ecotrin Low Dose] 81 mg PO DAILY 12/25/21 12/25/21 History Cholecalciferol [Vitamin D3 (25 100 mcg PO DAILY 12/25/21 12/25/21 History Mcg = 1000 Iu)] Iron 36 mg PO DAILY 12/25/21 12/25/21 History polyethylene glycoL 3350 [Miralax] 17 gm PO DAILY PRN 12/25/21 12/25/21 History predniSONE See Taper PO DIRECTED 12/25/21 12/25/21 History Allergies Allergy/AdvReac Type Severity Reaction Status Date / Time Penicillins Allergy Rash/Hives Verified 12/25/21 11:32 celecoxib [From Celebrex] AdvReac "dizziness,elevated Verified 12/25/21 11:32 b/p" codeine AdvReac "upset Verified 12/25/21 11:32 stomach" erythromycin base AdvReac "stomach Verified 12/25/21 11:32 issues" hydrocodone AdvReac "didn't Verified 12/25/21 11:32 feel well",constipation hydrocodone bitartrate AdvReac "didn't Verified 12/25/21 11:32 [From Lortab] feel well",constipation oxycodone HCl [From Percocet] AdvReac constipatio Verified 12/25/21 11:32 n Physical Exam Vitals: Vital Signs Temp Pulse Resp BP Pulse Ox 12/25/21 12:35 73 18 136/68 100 12/25/21 10:24 78 18 141/93 100 12/25/21 08:48 74 18 138/74 97 12/25/21 07:56 97.1 F L 79 20 157/79 99 Intake and Output 12/24/21 12/25/21 12/25/21 22:59 06:59 14:59 Other: Weight 76.204 kg GENERAL: The patient is alert and oriented x3, not in any acute distress. Well developed, well nourished. HEENT: Pupils are round and equally reacting to light. EOMI. No scleral icterus. No conjunctival pallor. Normocephalic, atraumatic. No pharyngeal erythema. No thyromegaly. CARDIOVASCULAR: S1 and S2 present. No murmurs, rubs, or gallops. PULMONARY: Chest is clear to auscultation, no wheezing or crackles. - ABDOMEN: Soft, LLQ, no rebound tenderness, nondistended, normoactive bowel sounds. No palpable organomegaly. MUSCULOSKELETAL: No joint swelling or deformity. EXTREMITIES: No cyanosis, clubbing, or pedal edema. NEUROLOGICAL: Gross neurological examination did not reveal any focal deficits. SKIN: No rashes. No petechiae Results CBC & Chem 7: 12/25/21 08:36 12/25/21 08:36 Labs: Abnormal Lab Results - Last 24 Hours (Table) 12/25/21 12/25/21 Range/Units 08:36 08:36 WBC 11.8 H (3.8-10.6) k/uL Neutrophils # 9.1 H (1.3-7.7) k/uL Sodium 136 L (137-145) mmol/L BUN 19 H (7-17) mg/dL Assessment and Plan Assessment: Recurrent acute diverticulitis right ovarian cyst Hypertension History of hypothyroidism History of GERD History of osteoarthritis Plan: This is a pleasant 76 resolved female who presents with diverticulitis Continue with antibiotics. Continue on Lovenox and Flagyl Gentle hydration and bowel rest.Currently on a clear liquid diet Consult Dr. Mitchell Labs and medication were reviewed.. Continue same treatment. Continue with symptomatic treatment. Resume home medication. Monitor lytes and vitals. DVT and GI prophylaxis. Further recommendations depends on the clinical course of the patient DVT prophylaxis: Subcutaneous heparin GI Prophylaxis: Pepcid PT/OT: Pending Prognosis is guarded
--- NOTE | 2021-12-25 13:21 | P.GSCN ---
History of Present Illness Consult date: 12/25/21 Reason for Consult: Diverticulitis History of present illness: 76-year-old female came to the hospital because of pain that began yesterday silvia rodriguez around 8:00. Pain left lower quadrant. Patient has had numerous episodes of diverticulitis. Last episode prior to this was at the end of 2020. CAT scan was performed showing diverticulitis involving the descending colon. Patient says she does feel somewhat better today. No fevers. Mild leukocytosis. Last colonoscopy June 2020. Patient is not interested so far and colonic resection. Review of Systems The patient denies any acute changes in vision or hearing, no dysphagia or odynophagia, no chest pain or shortness of breath, no dysuria or hematuria, no headache, no runny nose, no rectal bleeding or melena, no unexplained weight loss Past Medical History Past Medical History: Cancer, GERD/Reflux, Hypertension, Osteoarthritis (OA), Thyroid Disorder Additional Past Medical History / Comment(s): skin cancer-basal cell,torn cornea,dry eyes, hypothyroid, , diverticulitis History of Any Multi-Drug Resistant Organisms: None Reported Past Surgical History: Hysterectomy, Joint Replacement, Orthopedic Surgery Additional Past Surgical History / Comment(s): rt knee replaced, laparotomy repair to untwist bowel, carolin cataract ( 04/19/18) Past Anesthesia/Blood Transfusion Reactions: No Reported Reaction, Motion Sickness Smoking Status: Never smoker - Past Family History Father Family Medical History: Myocardial Infarction ([place]) Mother Family Medical History: Cancer Additional Family Medical History / Comment(s): lung problems Brother(s) Family Medical History: Cancer Medications and Allergies Home Medications Medication Instructions Recorded Confirmed Type Calcium Carbonate/Vitamin D3 2 tab PO DAILY 06/14/16 12/25/21 History [Calcium 600-Vit D3 800 Tab] Docusate [Colace] 100 mg PO DAILY 06/14/16 12/25/21 History Fish Oil/Dha/Epa [Fish Oil 1,200 1 cap PO DAILY 06/14/16 12/25/21 History mg Fish Oil] Levothyroxine Sodium [Synthroid] 88 mcg PO DAILY 06/14/16 12/25/21 History Losartan [Cozaar] 50 mg PO DAILY 06/14/16 12/25/21 History Multivit-Min/Iron/Folic/Lutein 1 tab PO DAILY 06/14/16 12/25/21 History [Centrum Silver Women Tablet] Omeprazole 20 mg PO HS 06/14/16 12/25/21 History Spironolactone 37.5 mg PO DAILY 06/14/16 12/25/21 History Ibuprofen [Advil] 400 mg PO DAILY PRN 06/12/20 12/25/21 History Melatonin 10 mg PO HS PRN 06/12/20 12/25/21 History Albuterol Sulfate [Proair Hfa] 2 puff INHALATION RT-QID PRN 12/25/21 12/25/21 History Amitriptyline HCl [Elavil] 25 mg PO HS 12/25/21 12/25/21 History Aspirin EC [Ecotrin Low Dose] 81 mg PO DAILY 12/25/21 12/25/21 History Cholecalciferol [Vitamin D3 (25 100 mcg PO DAILY 12/25/21 12/25/21 History Mcg = 1000 Iu)] Iron 36 mg PO DAILY 12/25/21 12/25/21 History polyethylene glycoL 3350 [Miralax] 17 gm PO DAILY PRN 12/25/21 12/25/21 History predniSONE See Taper PO DIRECTED 12/25/21 12/25/21 History Allergies Allergy/AdvReac Type Severity Reaction Status Date / Time Penicillins Allergy Rash/Hives Verified 12/25/21 11:32 celecoxib [From Celebrex] AdvReac "dizziness,elevated Verified 12/25/21 11:32 b/p" codeine AdvReac "upset Verified 12/25/21 11:32 stomach" erythromycin base AdvReac "stomach Verified 12/25/21 11:32 issues" hydrocodone AdvReac "didn't Verified 12/25/21 11:32 feel well",constipation hydrocodone bitartrate AdvReac "didn't Verified 12/25/21 11:32 [From Lortab] feel well",constipation oxycodone HCl [From Percocet] AdvReac constipatio Verified 12/25/21 11:32 n Surgical - Exam Vital Signs Temp Pulse Resp BP Pulse Ox 97.1 F L 79 20 157/79 99 12/25/21 07:56 12/25/21 07:56 12/25/21 07:56 12/25/21 07:56 12/25/21 07:56 Physical exam: General: Well-developed, well-nourished HEENT: Normocephalic, sclerae nonicteric Abdomen: Mild left lower quadrant tenderness, nondistended Extremities: No edema Neuro: Alert and oriented Results - Labs 12/25/21 08:36 12/25/21 08:36 Abnormal Lab Results - Last 24 Hours (Table) 12/25/21 12/25/21 Range/Units 08:36 08:36 WBC 11.8 H (3.8-10.6) k/uL Neutrophils # 9.1 H (1.3-7.7) k/uL Sodium 136 L (137-145) mmol/L BUN 19 H (7-17) mg/dL Diabetes panel 12/25/21 Range/Units 08:36 Sodium 136 L (137-145) mmol/L Potassium 3.9 (3.5-5.1) mmol/L Chloride 104 (98-107) mmol/L Carbon Dioxide 25 (22-30) mmol/L BUN 19 H (7-17) mg/dL Creatinine 0.78 (0.52-1.04) mg/dL Glucose 96 (74-99) mg/dL Calcium 9.6 (8.4-10.2) mg/dL AST 26 (14-36) U/L ALT 18 (4-34) U/L Alkaline Phosphatase 49 (38-126) U/L Total Protein 7.4 (6.3-8.2) g/dL Albumin 4.5 (3.5-5.0) g/dL Calcium panel 12/25/21 Range/Units 08:36 Calcium 9.6 (8.4-10.2) mg/dL Albumin 4.5 (3.5-5.0) g/dL Pituitary panel 12/25/21 Range/Units 08:36 Sodium 136 L (137-145) mmol/L Potassium 3.9 (3.5-5.1) mmol/L Chloride 104 (98-107) mmol/L Carbon Dioxide 25 (22-30) mmol/L BUN 19 H (7-17) mg/dL Creatinine 0.78 (0.52-1.04) mg/dL Glucose 96 (74-99) mg/dL Calcium 9.6 (8.4-10.2) mg/dL Adrenal panel 12/25/21 Range/Units 08:36 Sodium 136 L (137-145) mmol/L Potassium 3.9 (3.5-5.1) mmol/L Chloride 104 (98-107) mmol/L Carbon Dioxide 25 (22-30) mmol/L BUN 19 H (7-17) mg/dL Creatinine 0.78 (0.52-1.04) mg/dL Glucose 96 (74-99) mg/dL Calcium 9.6 (8.4-10.2) mg/dL Total Bilirubin 0.9 (0.2-1.3) mg/dL AST 26 (14-36) U/L ALT 18 (4-34) U/L Alkaline Phosphatase 49 (38-126) U/L Total Protein 7.4 (6.3-8.2) g/dL Albumin 4.5 (3.5-5.0) g/dL Assessment and Plan (1) Diverticulitis Narrative/Plan: 76-year-old female with recurrent diverticulitis. Continue antibiotics. Agree with clear liquids. May advance of pain improves. Hopefully discharge in the next 1-2 days on oral antibiotics. Patient leaving for [place] next week. Recommend patient follow up with me after she returns from her trip. Current Visit: Yes Status: Acute Code(s): K57.92 - DVTRCLI OF INTEST, PART UNSP, W/O PERF OR ABSCESS W/O BLEED SNOMED Code(s): 568097971
[2021-12-25] MEDS: predniSONE 10 MG TAB PO SCH (13:45)
[2021-12-25] MEDS: SPIRONOLACTONE 25 MG TAB PO SCH (13:46)
[2021-12-25] MEDS: MORPHINE SULFATE 4 MG/ML SYRINGE IV PRN ×2 (14:25→20:28)
[2021-12-25] MEDS: ONDANSETRON 4 MG/2 ML VIAL IVP PRN (16:26)
[2021-12-25] MEDS: HEPARIN SODIUM,PORCINE/PF 5,000 UNIT/0.5 ML SYRINGE SQ SCH (20:28)
[2021-12-25] MEDS: FAMOTIDINE 20 MG/2 ML VIAL IV SCH (20:29)
[2021-12-26] MEDS: metroNIDAZOLE-NS PMX 500 MG in SALINE 1 100ML.BAG IVPB SCH ×5 (00:19→23:38)
[2021-12-26] MEDS: traMADol 50 MG TAB PO PRN ×3 (00:27→20:57)
[2021-12-26] MEDS: SODIUM CHLORIDE 0.9% 1,000 ML IV SCH ×2 (02:02→15:46)
[2021-12-26] MEDS: LEVOTHYROXINE 88 MCG TAB PO SCH (06:13)
[2021-12-26] MEDS: HEPARIN SODIUM,PORCINE/PF 5,000 UNIT/0.5 ML SYRINGE SQ SCH ×2 (08:33→20:58)
[2021-12-26] MEDS: polyethylene glycoL 3350 17 GM POWD.PACK PO PRN (08:33)
[2021-12-26] MEDS: LOSARTAN 50 MG TAB PO SCH (08:34)
[2021-12-26] MEDS: ASPIRIN 81 MG PO SCH (08:34)
[2021-12-26] MEDS: FAMOTIDINE 20 MG/2 ML VIAL IV SCH ×2 (08:34→20:58)
[2021-12-26] MEDS: SPIRONOLACTONE 25 MG TAB PO SCH (08:34)
[2021-12-26] MEDS: predniSONE 10 MG TAB PO SCH (08:35)
[2021-12-26 09:00] LABS: Basophils # (A) 0.01 X 10*3/uL (0.00-0.10); Basophils % (A) 0.1 %; Eosinophils # (A) 0.01 X 10*3/uL (0.04-0.35); Eosinophils % (A) 0.1 %; HCT 34.7 % (37.2-46.3); HGB 11.4 g/dL (12.0-15.0); Immature Grans, Automated 0.6 %; Lymphocytes # (A) 1.24 X 10*3/uL (0.90-5.00); Lymphocytes % (A) 12.4 %; MCH 29.2 pg (27.0-32.0); MCHC 32.9 g/dL (32.0-37.0); MCV 88.7 fL (80.0-97.0); Mean Platelet Volume 10.2 fL (9.5-12.2); Monocytes # (A) 0.58 X 10*3/uL (0.20-1.00); Monocytes % (A) 5.8 %; NRBC Per 100 WBC 0 /100 WBCS (0.0-0.0); Neutrophils # (A) 8.09 X 10*3/uL (1.80-7.70); Platelet Count 162 X 10*3/uL (140-440); RBC 3.91 X 10*6/uL (4.10-5.20); RDW 13.1 % (11.5-14.5); WBC 9.99 X 10*3/uL (4.50-10.00)
[2021-12-26] MEDS ORDERED: PANTOPRAZOLE 40 MG/10 ML VIAL IV SCH (09:00)
[2021-12-26 09:02] LABS: African American GFR (CKD) 83.6 (60.0-200.0); Anion Gap 10.8 mmol/L (10.00-18.00); BUN/Creat Ratio 19.25 Ratio (12.00-20.00); Blood Urea Nitrogen 15.4 mg/dL (9.0-27.0); Calcium 8.7 mg/dL (8.7-10.3); Carbon Dioxide 24.2 mmol/L (20.0-27.5); Non-African American GFR(CKD) 72.1 (60.0-200.0); Potassium 4.3 mmol/L (3.5-5.5)
--- NOTE | 2021-12-26 11:12 | P.PN ---
Subjective This is a pleasant 76 resolved female with past medical history of diverticulitis, GERD, hypertension, osteoarthritis, hypothyroidism. Patient presents with left lower quadrant abdominal pain similar to previous attacks of diverticulitis, she had similar 4-5 attacks previously and her surgeon is Dr. Pacheco. No vomiting. No diarrhea. No chest pain or dyspnea. No fever. denies smoking, alcohol or illicit tracts. Vitas looks stable. She has mild leukocytosis of 11.8, rest of CBC, BMP, INR, liver enzymes are unremarkable. Urine analysis is not suspicious of infection CT of the abdomen and pelvis with contrast: Extensive colonic diverticulitis acute diverticulitis of the inferior aspect of the descending colon. Slightly larger right ovary or adnexal cyst Patient states also she takes prednisone 30 mg daily for her rotator cuff 12/26/2021 Patient awake and alert and reports improvement in her left lower quadrant abdominal pain for 10/10 on admission yesterday down to 5/10 today and she is satisfied with the progress she is making. She is still on liquid diet and she wants to wait until she speaks with surgeon. No diarrhea. No vaginal discharge She is hemodynamically stable and labs reviewed and they looked unremarkable She remains on antibiotics of Flagyl and Levaquin. She states she is going to [place] next Tuesday, she was instructed to follow up with Dr. Pacheco upon returning back to [place] within one week and she a rock Objective - Vital Signs Vital signs: Vital Signs Temp 98.2 F 12/26/21 04:22 Pulse 71 12/26/21 04:22 Resp 16 12/26/21 04:22 BP 116/64 12/26/21 04:22 Pulse Ox 96 12/26/21 04:22 Intake & Output 12/25/21 12/26/21 12/26/21 18:59 06:59 18:59 Intake Total 815 1115 Balance 815 1115 Weight 76.204 kg Intake: Intake, IV Titration 575 825 Amount Levofloxacin 750Mg-D5w 150 Pmx 750 mg In Dextrose/ Water 1 150ml.bag @ 100 mls/hr IVPB Q24H [facility] Rx#: [id number] Sodium Chloride 0.9% 1, 225 725 000 ml @ 75 mls/hr IV . [id number] [facility] Rx#:[id number] metroNIDAZOLE-NS PMX 500 200 100 mg In Saline 1 100ml.bag @ 100 mls/hr IVPB Q6HR [facility] Rx#:[id number] Oral 240 290 Other: # Voids 2 1 - Exam GENERAL: The patient is alert and oriented x3, not in any acute distress. Well developed, well nourished. HEENT: Pupils are round and equally reacting to light. EOMI. No scleral icterus. No conjunctival pallor. Normocephalic, atraumatic. No pharyngeal erythema. No thyromegaly. CARDIOVASCULAR: S1 and S2 present. No murmurs, rubs, or gallops. PULMONARY: Chest is clear to auscultation, no wheezing or crackles. -ABDOMEN: Soft, LLQ tenderness, no rebound tenderness, nondistended, normoactive bowel sounds. No palpable organomegaly. MUSCULOSKELETAL: No joint swelling or deformity. EXTREMITIES: No cyanosis, clubbing, or pedal edema. NEUROLOGICAL: Gross neurological examination did not reveal any focal deficits. SKIN: No rashes. no petechiae. - Labs CBC & Chem 7: 12/26/21 05:58 12/26/21 05:58 Labs: Abnormal Lab Results - Last 24 Hours (Table) 12/26/21 Range/Units 05:58 RBC 3.91 L (4.10-5.20) X 10*6/uL Hgb 11.4 L (12.0-15.0) g/dL Hct 34.7 L (37.2-46.3) % Immature Gran # 0.06 H (0.00-0.04) X 10*3/uL Neutrophils # 8.09 H (1.80-7.70) X 10*3/uL Eosinophils # 0.01 L (0.04-0.35) X 10*3/uL Assessment and Plan Assessment: Recurrent acute diverticulitis right ovarian cyst Hypertension History of hypothyroidism History of GERD History of osteoarthritis Plan: This is a pleasant 76 resolved female who presents with diverticulitis Continue with antibiotics. Continue on Lovenox and Flagyl Gentle hydration and bowel rest.Currently on a clear liquid diet Consult Dr. Mitchell Labs and medication were reviewed.. Continue same treatment. Continue with symptomatic treatment. Resume home medication. Monitor lytes and vitals. DVT and GI prophylaxis. Further recommendations depends on the clinical course of the patient DVT prophylaxis: Subcutaneous heparin GI Prophylaxis: Pepcid PT/OT: Pending Prognosis is guarded
[2021-12-26] MEDS: ONDANSETRON 4 MG/2 ML VIAL IVP PRN ×2 (12:09→17:50)
[2021-12-26] MEDS: MORPHINE SULFATE 4 MG/ML SYRINGE IV PRN ×2 (12:25→17:52)
[2021-12-26] MEDS: LEVOFLOXACIN 750MG-D5W PMX 750 MG in DEXTROSE/WATER 1 150ML.BAG IVPB SCH (13:23)
--- NOTE | 2021-12-26 15:31 | P.PN ---
Subjective Progress Note Date: 12/26/21 CHIEF COMPLAINT: Diverticulitis HISTORY OF PRESENT ILLNESS: The patient is a 76-year-old female presents with recurrent diverticulitis. She has history of frequent recurrent attacks. She reports her most recent episode complicated with oral steroids for her shoulder. She still reports left lower quadrant pain. This is her 5th attack. She is planning to go to [place] for 2 months. She does not have any providers in that area. ROS: No reports of nausea and vomiting. No fevers or chills. No new chest pain. No productive sputum PHYSICAL EXAM: VITAL SIGNS: Reviewed CONSTITUTIONAL: Well developed and in no acute distress. EYES: Conjuctivae without sclera icterus. Extraocular movements grossly intact. HEAD, EARS, NOSE, THROAT: Moist buccal mucosa. Head is atraumatic, normocephalic. Hears conversational speech. No nasal drainage. RESPIRATORY: Non-labored respirations and equal bilateral excursions. CARDIOVASCULAR: 2+ radial pulses. ABDOMEN: No peritonitis. Tender left lower quadrant. MUSCULOSKELETAL: No gross deformity of the lower extremities noted. No clubbing. No cyanosis. SKIN: Good skin turgor. Well perfused. NEUROLOGIC: Cranial nerves II through XII grossly intact. No focal or lateralizing signs. PSYCH: Appropriate affect. Alert and oriented to person, place and time. CLINICAL LABS: Reviewed. WBC down from 11.8-9.9. Hemoglobin down 13.1-11.4. STUDIES: CT of the abdomen and pelvis independently reviewed demonstrating focal sigmoid diverticulitis without phlegmon or free air. Gallbladder present. Small hiatal hernia present. This is my independent interpretation. ASSESSMENT: 1. Diverticulitis, sigmoid PLAN: 1. Continue IV antibiotics 2. Hold on low fiber diet due to persistent abdominal pain. Objective - Vital Signs Vital signs: Vital Signs Temp 98.5 F 12/26/21 12:52 Pulse 68 12/26/21 12:52 Resp 18 12/26/21 12:52 BP 146/78 12/26/21 12:52 Pulse Ox 92 L 12/26/21 12:52 Intake & Output 12/25/21 12/26/21 12/26/21 18:59 06:59 18:59 Intake Total 815 1115 Balance 815 1115 Weight 76.204 kg Intake: Intake, IV Titration 575 825 Amount Levofloxacin 750Mg-D5w 150 Pmx 750 mg In Dextrose/ Water 1 150ml.bag @ 100 mls/hr IVPB Q24H [facility] Rx#: [id number] Sodium Chloride 0.9% 1, 225 725 000 ml @ 75 mls/hr IV . [id number] [facility] Rx#:[id number] metroNIDAZOLE-NS PMX 500 200 100 mg In Saline 1 100ml.bag @ 100 mls/hr IVPB Q6HR [facility] Rx#:[id number] Oral 240 290 Other: # Voids 2 1 - Labs CBC & Chem 7: 12/26/21 05:58 12/26/21 05:58 Labs: Abnormal Lab Results - Last 24 Hours (Table) 12/26/21 Range/Units 05:58 RBC 3.91 L (4.10-5.20) X 10*6/uL Hgb 11.4 L (12.0-15.0) g/dL Hct 34.7 L (37.2-46.3) % Immature Gran # 0.06 H (0.00-0.04) X 10*3/uL Neutrophils # 8.09 H (1.80-7.70) X 10*3/uL Eosinophils # 0.01 L (0.04-0.35) X 10*3/uL
--- NOTE | 2021-12-26 17:26 | US ---
EXAMINATION TYPE: US pelvic complete DATE OF EXAM: 12/26/2021 COMPARISON: CLINICAL HISTORY: Right ovarian cyst. Abdominal pain. CT showed ovarian cyst. Patient states she do esn't have any pelvic pain. Partial hysterectomy. TECHNIQUE: Transabdominal (TA). Transabdominal sonographic images of the pelvis were acquired. Date of LMP: Unknown EXAM MEASUREMENTS: Right Ovary: 2.8 x 2.1 x 2.2 cm 1. Uterus: Surgically absent 2. Endometrium: Surgically absent 3. Right Ovary: Complex cyst= 2.6 x 2.4 x 2.1 cm 4. Left Ovary: Obscured by overlying bowel gas 5. Bilateral Adnexa: wnl 6. Posterior cul-de-sac: no free fluid IMPRESSION: There is septated right ovarian cyst. No solid pelvic mass. No free fluid.
--- NOTE | 2021-12-26 23:20 | P.OBCN ---
History of Present Illness Consult date: 12/26/21 Requesting physician: Rajat Chappell Reason for consult: ovarian cyst Chief complaint: Left lower quadrant pain History of present illness: This patient is a pleasant 76-year-old 4 para 4 female who was admitted to the hospital yesterday with complaints of left lower quadrant pain. Patient has a known history of diverticulitis and states that she's had at least 5 episodes of this in the past. Patient is seen by general surgery placed on antibiotics and is being watched conservatively at this time. Imaging done on admission included a CAT scan which has showed a 3.2 cm right ovarian cyst. The radiologist did compare this to a CAT scan from 2019 and it was 2.6 cm. Patient was unaware that she had this cyst back in 2020. I did order a transvaginal ultrasound which showed a 2.6 cm cyst without evidence of free fluid. Patient's past gynecologic history is also significant for a hysterectomy and posterior repair. Past Medical History Past Medical History: Cancer, GERD/Reflux, Hypertension, Osteoarthritis (OA), Thyroid Disorder Additional Past Medical History / Comment(s): skin cancer-basal cell,torn corne a,dry eyes, hypothyroid, , diverticulitis History of Any Multi-Drug Resistant Organisms: None Reported Past Surgical History: Hysterectomy, Joint Replacement, Orthopedic Surgery Additional Past Surgical History / Comment(s): rt knee replaced, laparotomy repair to untwist bowel, carolin cataract ( 04/19/18) Past Anesthesia/Blood Transfusion Reactions: No Reported Reaction, Motion Sickness Additional Past Anesthesia/Blood Transfusion Reaction / Comm: Clausterphobia Smoking Status: Never smoker - Past Family History Father Family Medical History: Myocardial Infarction (OK) Mother Family Medical History: Cancer Additional Family Medical History / Comment(s): lung problems Brother(s) Family Medical History: Cancer Medications and Allergies Home Medications Medication Instructions Recorded Confirmed Type Calcium Carbonate/Vitamin D3 2 tab PO DAILY 06/14/16 12/25/21 History [Calcium 600-Vit D3 800 Tab] Docusate [Colace] 100 mg PO DAILY 06/14/16 12/25/21 History Fish Oil/Dha/Epa [Fish Oil 1,200 1 cap PO DAILY 06/14/16 12/25/21 History mg Fish Oil] Levothyroxine Sodium [Synthroid] 88 mcg PO DAILY 06/14/16 12/25/21 History Losartan [Cozaar] 50 mg PO DAILY 06/14/16 12/25/21 History Multivit-Min/Iron/Folic/Lutein 1 tab PO DAILY 06/14/16 12/25/21 History [Centrum Silver Women Tablet] Omeprazole 20 mg PO HS 06/14/16 12/25/21 History Spironolactone 37.5 mg PO DAILY 06/14/16 12/25/21 History Ibuprofen [Advil] 400 mg PO DAILY PRN 06/12/20 12/25/21 History Melatonin 10 mg PO HS PRN 06/12/20 12/25/21 History Albuterol Sulfate [Proair Hfa] 2 puff INHALATION RT-QID PRN 12/25/21 12/25/21 History Amitriptyline HCl [Elavil] 25 mg PO HS 12/25/21 12/25/21 History Aspirin EC [Ecotrin Low Dose] 81 mg PO DAILY 12/25/21 12/25/21 History Cholecalciferol [Vitamin D3 (25 100 mcg PO DAILY 12/25/21 12/25/21 History Mcg = 1000 Iu)] Iron 36 mg PO DAILY 12/25/21 12/25/21 History polyethylene glycoL 3350 [Miralax] 17 gm PO DAILY PRN 12/25/21 12/25/21 History predniSONE See Taper PO DIRECTED 12/25/21 12/25/21 History Allergies Allergy/AdvReac Type Severity Reaction Status Date / Time Penicillins Allergy Rash/Hives Verified 12/25/21 11:32 celecoxib [From Celebrex] AdvReac "dizziness,elevated Verified 12/25/21 11:32 b/p" codeine AdvReac "upset Verified 12/25/21 11:32 stomach" erythromycin base AdvReac "stomach Verified 12/25/21 11:32 issues" hydrocodone AdvReac "didn't Verified 12/25/21 11:32 feel well",constipation hydrocodone bitartrate AdvReac "didn't Verified 12/25/21 11:32 [From Lortab] feel well",constipation oxycodone HCl [From Percocet] AdvReac constipatio Verified 12/25/21 11:32 n Exam Vital Signs Temp Pulse Resp BP Pulse Ox 12/26/21 20:22 98.2 F 75 16 128/73 95 12/26/21 12:52 98.5 F 68 18 146/78 92 L 12/26/21 08:00 65 18 12/26/21 04:22 98.2 F 71 16 116/64 96 Intake and Output 12/26/21 12/26/21 12/27/21 14:59 22:59 06:59 Intake Total 1320 Balance 1320 Intake: Oral 1320 Other: Voiding Method Toilet # Voids 2 Results Result Diagrams: 12/26/21 05:58 12/26/21 05:58 Abnormal Lab Results - Last 24 Hours (Table) 12/26/21 Range/Units 05:58 RBC 3.91 L (4.10-5.20) X 10*6/uL Hgb 11.4 L (12.0-15.0) g/dL Hct 34.7 L (37.2-46.3) % Immature Gran # 0.06 H (0.00-0.04) X 10*3/uL Neutrophils # 8.09 H (1.80-7.70) X 10*3/uL Eosinophils # 0.01 L (0.04-0.35) X 10*3/uL Microbiology - Last 24 Hours (Table) 12/25/21 12:09 Blood Culture - Preliminary Blood No Growth after 24 hours 12/25/21 12:25 Blood Culture - Preliminary Blood No Growth after 24 hours Assessment and Plan Assessment: This is a pleasant 76-year-old 4 para 4 female with known diverticulitis and having acute exacerbation at this time. CAT scan and ultrasound incidentally of shown a 2.6 cm complex cyst of the right ovary which appears to be chronic/benign in nature. I did for precautionary reasons order a CA-125 and I explained to the patient that sometimes this is helpful although it can be mildly elevated and certain other diseases and not always indicative of ovarian cancer. This patient is having left-sided pain and known diverticulitis, therefore this cyst is most likely just an incidental finding. Patient sees Dr. Oconnell on a regular basis and is going to [place] soon for approximately 8 weeks. If her CA-125 is normal, certainly she can have repeat imaging when she gets back from [place] in our office for a precautionary follow-up. There is no indication for surgical intervention from a gynecologic standpoint at this point. Thank you very much for this consultation. (1) Ovarian cyst, right Current Visit: Yes Status: Acute Code(s): N83.201 - UNSPECIFIED OVARIAN CYST, RIGHT SIDE SNOMED Code(s): 53391308
[2021-12-27] MEDS: metroNIDAZOLE-NS PMX 500 MG in SALINE 1 100ML.BAG IVPB SCH ×4 (06:07→23:23)
[2021-12-27] MEDS: LEVOTHYROXINE 88 MCG TAB PO SCH (06:07)
[2021-12-27] MEDS: traMADol 50 MG TAB PO PRN ×3 (06:09→18:02)
[2021-12-27] MEDS: SODIUM CHLORIDE 0.9% 1,000 ML IV SCH ×3 (06:12→23:24)
--- NOTE | 2021-12-27 06:55 | P.PN ---
Progress Note - Text Progress Note Date: 12/27/21 Patient's CA 125 and CA-19-9 both returned normal. I did discuss this with the patient last evening and it is evident that this ovarian cysts is just an incidental finding. Per my consultation, I think it is appropriate for this patient to just get a follow-up vaginal ultrasound once she returns from [place].
[2021-12-27] MEDS: SPIRONOLACTONE 25 MG TAB PO SCH (08:06)
[2021-12-27] MEDS: predniSONE 10 MG TAB PO SCH ×2 (08:06→08:12)
[2021-12-27] MEDS: LOSARTAN 50 MG TAB PO SCH (08:06)
[2021-12-27] MEDS: ACETAMINOPHEN TAB 325 MG TAB PO PRN ×3 (08:07→20:10)
[2021-12-27] MEDS: HEPARIN SODIUM,PORCINE/PF 5,000 UNIT/0.5 ML SYRINGE SQ SCH ×2 (08:08→20:06)
[2021-12-27] MEDS: FAMOTIDINE 20 MG/2 ML VIAL IV SCH ×2 (08:08→20:06)
[2021-12-27] MEDS: ASPIRIN 81 MG PO SCH (08:08)
[2021-12-27] MEDS: polyethylene glycoL 3350 17 GM POWD.PACK PO PRN (08:16)
--- NOTE | 2021-12-27 12:04 | P.PN ---
Subjective This is a pleasant 76 resolved female with past medical history of diverticulitis, GERD, hypertension, osteoarthritis, hypothyroidism. Patient presents with left lower quadrant abdominal pain similar to previous attacks of diverticulitis, she had similar 4-5 attacks previously and her surgeon is Dr. Pacheco. No vomiting. No diarrhea. No chest pain or dyspnea. No fever. denies smoking, alcohol or illicit tracts. Vitas looks stable. She has mild leukocytosis of 11.8, rest of CBC, BMP, INR, liver enzymes are unremarkable. Urine analysis is not suspicious of infection CT of the abdomen and pelvis with contrast: Extensive colonic diverticulitis acute diverticulitis of the inferior aspect of the descending colon. Slightly larger right ovary or adnexal cyst Patient states also she takes prednisone 30 mg daily for her rotator cuff 12/26/2021 Patient awake and alert and reports improvement in her left lower quadrant abdominal pain for 10/10 on admission yesterday down to 5/10 today and she is satisfied with the progress she is making. She is still on liquid diet and she wants to wait until she speaks with surgeon. No diarrhea. No vaginal discharge She is hemodynamically stable and labs reviewed and they looked unremarkable She remains on antibiotics of Flagyl and Levaquin. She states she is going to [place] next Tuesday, she was instructed to follow up with Dr. Pacheco upon returning back to [place] within one week and she a grees to 12/27/2021 Patient her abdominal pain is improving in the left lower quadrant, no diarrhea She tolerates diet and advance diet as tolerated Patient is to follow up with Dr. Pacheco PCP and Dr. Mitchell surgeon upon discharge and she agrees [employer] input is appreciated, looks like this is an incidental ovarian cyst but she will need to follow up with her body hanger Dr. Manley was an outpatient and she agrees. Discussed plan with the patient and she is agreeable to stay. Possible discharge in 24-48 hours if she keeps improving Objective - Vital Signs Vital signs: Vital Signs Temp 98.2 F 12/27/21 04:39 Pulse 74 12/27/21 08:21 Resp 16 12/27/21 08:00 BP 148/76 12/27/21 08:21 Pulse Ox 95 12/27/21 04:39 Intake & Output 12/26/21 12/27/21 12/27/21 18:59 06:59 18:59 Intake Total 1320 1480 Balance 1320 1480 Intake: Intake, IV Titration 1000 Amount Sodium Chloride 0.9% 1, 900 000 ml @ 75 mls/hr IV . [id number] [facility] Rx#:[id number] metroNIDAZOLE-NS PMX 500 100 mg In Saline 1 100ml.bag @ 100 mls/hr IVPB Q6HR [facility] Rx#:[id number] Oral 1320 480 Other: Voiding Method Toilet Toilet # Voids 2 2 - Exam GENERAL: The patient is alert and oriented x3, not in any acute distress. Well developed, well nourished. HEENT: Pupils are round and equally reacting to light. EOMI. No scleral icterus. No conjunctival pallor. Normocephalic, atraumatic. No pharyngeal erythema. No thyromegaly. CARDIOVASCULAR: S1 and S2 present. No murmurs, rubs, or gallops. PULMONARY: Chest is clear to auscultation, no wheezing or crackles. -ABDOMEN: Soft, LLQ tenderness, no rebound tenderness, nondistended, normoactive bowel sounds. No palpable organomegaly. MUSCULOSKELETAL: No joint swelling or deformity. EXTREMITIES: No cyanosis, clubbing, or pedal edema. NEUROLOGICAL: Gross neurological examination did not reveal any focal deficits. SKIN: No rashes. no petechiae. - Labs CBC & Chem 7: 12/26/21 05:58 12/26/21 05:58 Labs: Microbiology - Last 24 Hours (Table) 12/25/21 12:09 Blood Culture - Preliminary Blood No Growth after 24 hours 12/25/21 12:25 Blood Culture - Preliminary Blood No Growth after 24 hours Assessment and Plan Assessment: Recurrent acute diverticulitis right ovarian cyst Hypertension History of hypothyroidism History of GERD History of osteoarthritis Plan: This is a pleasant 76 resolved female who presents with diverticulitis Continue with antibiotics. Continue on Lovenox and Flagyl Gentle hydration and bowel rest.Currently on a clear liquid diet Consult Dr. Mitchell Follow-up with Dr. Ellis and Dr. Pacheco upon discharge Labs and medication were reviewed.. Continue same treatment. Continue with sy mptomatic treatment. Resume home medication. Monitor lytes and vitals. DVT and GI prophylaxis. Further recommendations depends on the clinical course of the patient DVT prophylaxis: Subcutaneous heparin GI Prophylaxis: Pepcid PT/OT: Pending Prognosis is guarded
[2021-12-27] MEDS: LEVOFLOXACIN 750MG-D5W PMX 750 MG in DEXTROSE/WATER 1 150ML.BAG IVPB SCH (14:23)
--- NOTE | 2021-12-27 14:53 | P.PN ---
Subjective Progress Note Date: 12/27/21 CHIEF COMPLAINT: Diverticulitis HISTORY OF PRESENT ILLNESS: The patient is a 76-year-old female presents with recurrent diverticulitis. She reports feeling much better today. She denies any further left lower quadrant abdominal pain. She tolerated clear liquid diet without sequelae. ROS: No reports of nausea and vomiting. No fevers or chills. No new chest pain. No productive sputum PHYSICAL EXAM: VITAL SIGNS: Reviewed CONSTITUTIONAL: Well developed and in no acute distress. EYES: Conjuctivae without sclera icterus. Extraocular movements grossly intact. HEAD, EARS, NOSE, THROAT: Moist buccal mucosa. Head is atraumatic, normocephalic. Hears conversational speech. No nasal drainage. RESPIRATORY: Non-labored respirations and equal bilateral excursions. CARDIOVASCULAR: 2+ radial pulses. ABDOMEN: No peritonitis. Resolved left lower quadrant pain MUSCULOSKELETAL: No gross deformity of the lower extremities noted. No clubbing. No cyanosis. SKIN: Good skin turgor. Well perfused. NEUROLOGIC: Cranial nerves II through XII grossly intact. No focal or lateralizing signs. PSYCH: Appropriate affect. Alert and oriented to person, place and time. CLINICAL LABS: Reviewed. No new labs ASSESSMENT: 1. Diverticulitis, sigmoid PLAN: 1. Will start low fiber diet. 2. May discharge from a surgical standpoint once tolerating diet. Objective - Vital Signs Vital signs: Vital Signs Temp 98.3 F 12/27/21 12:45 Pulse 63 12/27/21 12:45 Resp 17 12/27/21 12:45 BP 135/69 12/27/21 12:45 Pulse Ox 93 L 12/27/21 12:45 Intake & Output 12/26/21 12/27/21 12/27/21 18:59 06:59 18:59 Intake Total 1320 1480 Balance 1320 1480 Intake: Intake, IV Titration 1000 Amount Sodium Chloride 0.9% 1, 900 000 ml @ 75 mls/hr IV . [id number] [facility] Rx#:[id number] metroNIDAZOLE-NS PMX 500 100 mg In Saline 1 100ml.bag @ 100 mls/hr IVPB Q6HR [facility] Rx#:[id number] Oral 1320 480 Other: Voiding Method Toilet Toilet # Voids 2 2 - Labs CBC & Chem 7: 12/26/21 05:58 12/26/21 05:58 Labs: Microbiology - Last 24 Hours (Table) 12/25/21 12:09 Blood Culture - Preliminary Blood No Growth after 48 hours 12/25/21 12:25 Blood Culture - Preliminary Blood No Growth after 48 hours Assessment and Plan (1) Sigmoid diverticulitis Current Visit: Yes Status: Acute Code(s): K57.32 - DVTRCLI OF LG INT W/O PERFORATION OR ABSCESS W/O BLEEDING SNOMED Code(s): 565141987
[2021-12-27 19:30] VITALS: RESP 18
[2021-12-28] MEDS: traMADol 50 MG TAB PO PRN ×2 (02:28→08:28)
[2021-12-28 04:39] VITALS: TEMP 98.2
[2021-12-28] MEDS: LEVOTHYROXINE 88 MCG TAB PO SCH (05:43)
[2021-12-28] MEDS: metroNIDAZOLE-NS PMX 500 MG in SALINE 1 100ML.BAG IVPB SCH ×2 (05:43→11:03)
[2021-12-28] MEDS: predniSONE 10 MG TAB PO SCH (08:37)
[2021-12-28] MEDS: LOSARTAN 50 MG TAB PO SCH (08:37)
[2021-12-28] MEDS: FAMOTIDINE 20 MG/2 ML VIAL IV SCH (08:37)
[2021-12-28] MEDS: ASPIRIN 81 MG PO SCH (08:37)
[2021-12-28] MEDS: polyethylene glycoL 3350 17 GM POWD.PACK PO PRN (08:38)
[2021-12-28] MEDS: HEPARIN SODIUM,PORCINE/PF 5,000 UNIT/0.5 ML SYRINGE SQ SCH (08:38)
[2021-12-28] MEDS: SPIRONOLACTONE 25 MG TAB PO SCH (08:38)
[2021-12-28 08:54] VITALS: BP 130/74; PULSE 86
[2021-12-28] MEDS: ACETAMINOPHEN TAB 325 MG TAB PO PRN (10:38)
--- NOTE | 2021-12-28 11:47 | P.PN ---
<PrashanthpepeHafsa hubbard - Last Filed: 12/28/21 11:44> Subjective Progress Note Date: 12/28/21 CHIEF COMPLAINT: Diverticulitis HISTORY OF PRESENT ILLNESS: Patient reports improvement in her abdominal pain. Tolerating low fiber diet. Reports having bowel movements. Denies any nausea vomiting. Afebrile. No new labs today PHYSICAL EXAM: VITAL SIGNS: Reviewed. GENERAL: Well-developed in no acute distress. HEENT: No sclera icterus. Extraocular movements grossly intact. Moist buccal mucosa. Head is atraumatic, normocephalic. ABDOMEN: Soft. Nondistended. Minimal tenderness left lower NEUROLOGIC: Alert and oriented. Cranial nerves II through XII grossly intact. ASSESSMENT: 1. Acute sigmoid colon diverticulitis PLAN: -Continue low fiber diet -Patient can be discharged from surgical standpoint Physician Ski Production Supervisor note has been reviewed by physician. Signing provider agrees with the documented findings, assessment, and plan of care. Objective - Vital Signs Vital signs: Vital Signs Temp 98.2 F 12/28/21 04:38 Pulse 86 12/28/21 08:35 Resp 18 12/28/21 04:38 BP 130/74 12/28/21 08:35 Pulse Ox 97 12/28/21 04:38 Intake & Output 12/27/21 12/28/21 12/28/21 18:59 06:59 18:59 Intake Total 1969 1720 Balance 1969 1720 Intake: Intake, IV Titration 1250 1000 Amount Levofloxacin 750Mg-D5w 150 Pmx 750 mg In Dextrose/ Water 1 150ml.bag @ 100 mls/hr IVPB Q24H [facility] Rx#: [id number] Sodium Chloride 0.9% 1, 900 900 000 ml @ 75 mls/hr IV . [id number] [facility] Rx#:[id number] metroNIDAZOLE-NS PMX 500 200 100 mg In Saline 1 100ml.bag @ 100 mls/hr IVPB Q6HR [facility] Rx#:[id number] Oral 720 720 Other: Voiding Method Toilet Toilet # Voids 4 1 - Labs CBC & Chem 7: 12/26/21 05:58 12/26/21 05:58 Labs: Microbiology - Last 24 Hours (Table) 12/25/21 12:09 Blood Culture - Preliminary Blood No Growth after 48 hours 12/25/21 12:25 Blood Culture - Preliminary Blood No Growth after 48 hours <StephenRicardoCornelius - Last Filed: 12/28/21 16:40> Subjective I have personally seen and examined the patient, reviewed the FLEECE TIER /PAs history, exam and MDM and agree with the assessment and plan as written. Based on total visit time, I have performed more than 50% of the visit. As above: Patient doing well today. Pain is improved. May discharge. Follow- up as outpatient. Objective - Vital Signs Vital signs: Vital Signs Temp 98.2 F 12/28/21 04:38 Pulse 86 12/28/21 08:35 Resp 18 12/28/21 04:38 BP 130/74 12/28/21 08:35 Pulse Ox 97 12/28/21 04:38 Intake & Output 12/27/21 12/28/21 12/28/21 18:59 06:59 18:59 Intake Total 1969 1720 Balance 1969 1720 Intake: Intake, IV Titration 1250 1000 Amount Levofloxacin 750Mg-D5w 150 Pmx 750 mg In Dextrose/ Water 1 150ml.bag @ 100 mls/hr IVPB Q24H [facility] Rx#: [id number] Sodium Chloride 0.9% 1, 900 900 000 ml @ 75 mls/hr IV . [id number] [facility] Rx#:[id number] metroNIDAZOLE-NS PMX 500 200 100 mg In Saline 1 100ml.bag @ 100 mls/hr IVPB Q6HR [facility] Rx#:[id number] Oral 720 720 Other: Voiding Method Toilet Toilet # Voids 4 1 - Labs CBC & Chem 7: 12/26/21 05:58 12/26/21 05:58 Labs: Microbiology - Last 24 Hours (Table) 12/25/21 12:09 Blood Culture - Preliminary Blood No Growth after 72 hours 12/25/21 12:25 Blood Culture - Preliminary Blood No Growth after 72 hours Assessment and Plan (1) Diverticulitis Status: Acute Code(s): K57.92 - DVTRCLI OF INTEST, PART UNSP, W/O PERF OR ABSCESS W/O BLEED SNOMED Code(s): 969236063
[2021-12-28] MEDS ORDERED: LEVOFLOXACIN 750 MG TAB PO SCH (14:00)
--- NOTE | 2021-12-28 22:30 | P.DS ---
Providers Date of admission: 12/25/21 11:43 Attending physician: Rajat Chappell MD Consults: 12/25/21 12:56 Consult Physician Urgent Consulting Provider: Cornelius Mitchell Consult Reason/Comments: Diverticulitis Do you want consulting provider notified?: Yes 12/26/21 11:42 Consult Physician Routine Consulting Provider: Kezia Oconnell Consult Reason/Comments: Ovarian cyst / Abdominal pain Do you want consulting provider notified?: Yes Primary care physician: Kim Mitchell Hospital Course: Diagnoses: Recurrent acute diverticulitis right ovarian cyst Hypertension History of hypothyroidism History of GERD History of osteoarthritis Hospital course: This is a pleasant 76 resolved female with past medical history of diverticulitis, GERD, hypertension, osteoarthritis, hypothyroidism. Patient presents with left lower quadrant abdominal pain similar to previous attacks of diverticulitis, she found to have acute diverticulitis per CT of the abdomen and pelvis with contrast: Extensive colonic diverticulitis acute diverticulitis of the inferior aspect of the descending colon. Slightly larger right ovary or adnexal cyst. Patient was treated with IV antibiotics, bowel rest and IV fluids with diet advanced as tolerated and patient has been evaluated and followed closely by Dr. Pacheco her surgeon, she did well and her pain and symptoms improved, diarrhea stopped, patient started tolerating regular diet today and she was signed out to be discharged home. On the day of discharge she denies chest pain or dyspnea. Her abdominal pain become much improved and minimal, had regular bowel movement today, tolerating diet well. No fever. Patient was cleared for discharge by surgeon Cornelius Reaves with recommendation to follow up with him in his office and she agrees Also patient has right ovarian cyst evaluated by manager lsw recommended to continue with conservative treatment and follow-up with her own manager lsw Dr. Oconnell in the office and she agrees as well. However she does not have symptoms but risk of tumor is explained for her and she verbalized understanding and acceptance. Patient was fitted for discharge by manager lsw and surgeon. Problems and management plan were discussed with the patient and he verbalized understanding and acceptance Patient was found stable and can be discharged home however he needs follow-up as an outpatient. Patient was instructed to follow up with PCP Dr. Kim Pacheco within one week and patient agrees Patient was instructed to follow up with her surgeon Dr. Cornelius Pacheco and manager lsw Dr. Oconnell in 1-2 weeks and she agrees to call and make her own appointment, however she says she is going to [place] for a few weeks and when she is back she will follow up with all the doctors above as recommended. Patient discharged on 10 days of oral antibiotic, Flagyl and levofloxacin Physical exam Gen: patient is a AAOx3, no distress CVS: S1-S2, RRR, no murmur Lungs: B/L CTA, no wheezing Abdomen: soft, no distention, no tenderness, positive bowel sounds Extremity: no leg edema or induration Time spent more than 35 minutes Plan - Discharge Summary Discharge Rx Participant: No New Discharge Prescriptions: New metroNIDAZOLE [Flagyl] 500 mg PO TID 10 Days #30 tab Levofloxacin [Levaquin] 750 mg PO Q24H #10 tab Continue Calcium Carbonate/Vitamin D3 [Calcium 600-Vit D3 800 Tab] 2 tab PO DAILY Multivit-Min/Iron/Folic/Lutein [Centrum Silver Women Tablet] 1 tab PO DAILY Fish Oil/Dha/Epa [Fish Oil 1,200 mg Fish Oil] 1 cap PO DAILY Docusate [Colace] 100 mg PO DAILY Spironolactone 37.5 mg PO DAILY Omeprazole 20 mg PO HS Losartan [Cozaar] 50 mg PO DAILY Levothyroxine Sodium [Synthroid] 88 mcg PO DAILY Melatonin 10 mg PO HS PRN PRN Reason: Insomnia predniSONE See Taper PO DIRECTED polyethylene glycoL 3350 [Miralax] 17 gm PO DAILY PRN PRN Reason: Constipation Iron 36 mg PO DAILY Cholecalciferol [Vitamin D3 (25 Mcg = 1000 Iu)] 100 mcg PO DAILY Aspirin EC [Ecotrin Low Dose] 81 mg PO DAILY Amitriptyline HCl [Elavil] 25 mg PO HS Ibuprofen [Advil] 400 mg PO DAILY PRN #3 PRN Reason: Pain Albuterol Sulfate [Proair Hfa] 2 puff INHALATION RT-QID PRN PRN Reason: Shortness Of Breath Discharge Medication List Calcium Carbonate/Vitamin D3 [Calcium 600-Vit D3 800 Tab] 2 tab PO DAILY 06/14/16 [History] Docusate [Colace] 100 mg PO DAILY 06/14/16 [History] Fish Oil/Dha/Epa [Fish Oil 1,200 mg Fish Oil] 1 cap PO DAILY 06/14/16 [History] Levothyroxine Sodium [Synthroid] 88 mcg PO DAILY 06/14/16 [History] Losartan [Cozaar] 50 mg PO DAILY 06/14/16 [History] Multivit-Min/Iron/Folic/Lutein [Centrum Silver Women Tablet] 1 tab PO DAILY 06/14/16 [History] Omeprazole 20 mg PO HS 06/14/16 [History] Spironolactone 37.5 mg PO DAILY 06/14/16 [History] Melatonin 10 mg PO HS PRN 06/12/20 [History] Albuterol Sulfate [Proair Hfa] 2 puff INHALATION RT-QID PRN 12/25/21 [History] Amitriptyline HCl [Elavil] 25 mg PO HS 12/25/21 [History] Aspirin EC [Ecotrin Low Dose] 81 mg PO DAILY 12/25/21 [History] Cholecalciferol [Vitamin D3 (25 Mcg = 1000 Iu)] 100 mcg PO DAILY 12/25/21 [History] Iron 36 mg PO DAILY 12/25/21 [History] polyethylene glycoL 3350 [Miralax] 17 gm PO DAILY PRN 12/25/21 [History] predniSONE See Taper PO DIRECTED 12/25/21 [History] Ibuprofen [Advil] 400 mg PO DAILY PRN #3 12/28/21 [Rx] Levofloxacin [Levaquin] 750 mg PO Q24H #10 tab 12/28/21 [Rx] metroNIDAZOLE [Flagyl] 500 mg PO TID 10 Days #30 tab 12/28/21 [Rx] Follow up Appointment(s)/Referral(s): Cornelius Mitchell MD [Family Provider] - 1 Week (or Once you are back from [place]) Kim Mitchell MD [Primary Care Provider] - 1-2 days Kezia Oconnell DO [Doctor of Osteopathic Medicine] - 1 Week (or Once you are back from [place] We recommend repeat imaging) Patient Instructions/Handouts: Ovarian Cyst (DC), Diverticulitis (DC) Activity/Diet/Wound Care/Special Instructions: your previous diet activity is restricted till you see your doctor Discharge Disposition: HOME SELF-CARE
[2021-12-29] MEDS ORDERED: predniSONE 20 MG TAB PO SCH (09:00)
== END 2021-12-28 13:10 | disposition home or self-care (01) ==
LOC: EC 07:50 → INTOOBSV 11:43 → 5NMEDONC 11:43 → UNDODISIN 12-28 13:10 → UNDODISOB 12-28 13:10
PROVIDERS: ADMIT Internal Medicine; ATTEND Internal Medicine
DX: K57.32 Diverticulitis of large intestine without perforation or abscess without bleeding (principal); N83.291 Other ovarian cyst, right side; I10 Essential (primary) hypertension; E03.9 Hypothyroidism, unspecified; K21.9 Gastro-esophageal reflux disease without esophagitis; M19.90 Unspecified osteoarthritis, unspecified site; K44.9 Diaphragmatic hernia without obstruction or gangrene; F40.240 Claustrophobia; H04.129 Dry eye syndrome of unspecified lacrimal gland; Z20.822 Contact with and (suspected) exposure to COVID-19; Z79.82 Long term (current) use of aspirin; Z79.890 Hormone replacement therapy; Z88.0 Allergy status to penicillin; Z88.5 Allergy status to narcotic agent; Z88.6 Allergy status to analgesic agent; Z85.9 Personal history of malignant neoplasm, unspecified; Z98.42 Cataract extraction status, left eye; Z98.41 Cataract extraction status, right eye; Z88.1 Allergy status to other antibiotic agents; Z90.710 Acquired absence of both cervix and uterus; Z87.19 Personal history of other diseases of the digestive system; Z96.651 Presence of right artificial knee joint; Z98.890 Other specified postprocedural states; Z82.49 Family history of ischemic heart disease and other diseases of the circulatory system; Z83.6 Family history of other diseases of the respiratory system; Z80.9 Family history of malignant neoplasm, unspecified
CPT/HCPCS: 96376 ×4; 96361 ×2; 96366 ×5; 96372 ×4; 96375 ×2; 96368; 96365; 99285; 36415; 80053; 80048; 86304; 82150; 83605; 83690; 85025 ×2; 85610; 85730; 81003; 87040; 86301; 87635; 76856; 74177; G0378 ×4; J2270 ×3; J2405 ×2; J1956 ×3; J7512 ×4; C9113; Q9967; J1644 ×4; 96374

== ENCOUNTER → 2022-04-26 | Outpatient (CLI) | payer MEDICARE ==
--- NOTE | 2022-04-27 09:29 | MM ---
Reason for Exam: Screening (asymptomatic). Last screening mammogram was performed 12 month(s) ago. Patient History: Menarche at age 13. First Full-Term at age 27. Left ovary removed at age 61. Right ovary removed at age 61. Hysterectomy at age 61. Postmenopausal. Patient used Estrogen for 5 years. Patient used Hormonal Contraceptives for 10 years. Risk Values: Dominga 5 year model risk: 2.0%. NCI Lifetime model risk: 4.2%. Prior Study Comparison: 03/26/2019 Bilateral Screening Mammogram, [facility]. 04/21/2020 Bilateral Screening Mammogram, [facility]. 04/23/2021 Bilateral Screening Mammogram, [facility]. Tissue Density: There are scattered fibroglandular densities. Findings: Analyzed By CAD. There is no suspicious group of microcalcifications or new suspicious mass in either breast. Benign calcifications noted. Overall Assessment: Benign, BI-RAD 2 Management: Screening Mammogram of both breasts in 1 year. A clinical breast exam by your physician is recommended on an annual basis and results should be correlated with mammographic findings. Electronically signed and approved by: Mane Lopez M.D. Radiologis
== END | disposition home or self-care (01) ==
LOC: RADMAMWWP 08:21
PROVIDERS: ATTEND Obstetrics & Gynecology
DX: Z12.31 Encounter for screening mammogram for malignant neoplasm of breast (principal); R92.1 Mammographic calcification found on diagnostic imaging of breast; Z78.0 Asymptomatic menopausal state
CPT/HCPCS: 77063; 77067

== ENCOUNTER → 2023-04-27 | Outpatient (CLI) | payer MEDICARE ==
--- NOTE | 2023-04-27 15:22 | BD ---
EXAMINATION TYPE: Axial Bone Density DATE OF EXAM: 04/27/2023 CLINICAL HISTORY: 77 years old Female. ICD-10 CODE: M810 OSTEO. Height: 65.5 Weight: 166 FRAX RISK QUESTIONS: Family History (Parent hip fracture): no History of Fracture in Adulthood: yes, ankle Secondary Osteoporosis: no RISK FACTORS HISTORY OF: Family History of Osteoporosis: yes, mother Active: yes Diet low in dairy products/other sources of calcium: no Postmenopausal woman: yes, age 56 Lost more than 2 inches in height since high school: no Frequent falls: no Poor Health: no MEDICATIONS: Thyroid Medications: yes Which medication: Synthroid How Lon+ years Additional Medications: yes HBP meds, reflux meds, vit d, calcium , sleep aid EXAM MEASUREMENTS: Bone mineral densitometry was performed using the [employer] System. Bone mineral density as measured about the Lumbar spine is: ----- L1-L4(G/cm2): 1.379 T Score Values are as follows: ----- L1: 0.5 ----- L2: 0.9 ----- L3: 2.0 ----- L4: 2.6 ----- L1-L4: 1.7 Z Score Values are as follows: ----- L1: 1.9 ----- L2: 2.3 ----- L3: 3.4 ----- L4: 4.0 ----- L1-L4: 3.1 Bone mineral density has: Decreased -4.1% since study of: 04/23/2021 Bone mineral density about the R hip (g/cm2): 0.860 Bone mineral density about the L hip (g/cm2): 0.845 T Score values are as follows: -----R Neck: -1.3 -----L Neck: -1.2 -----R Total: -1.2 -----L Total: -1.3 Z Score values are as follows: -----R Neck: 0.5 -----L Neck: 0.5 -----R Total: 0.4 -----L Total: 0.3 Bone mineral density has: Decreased -2.0% since study of: 04/27/2021 FRAX%s: The graph provided illustrates a 16.9% chance for a major osteoporotic fx and a 3.0% chance f or the hips probability for fx in 10 years time. IMPRESSION: Osteopenia (T Score between -2.5 and -1). There is slightly increased risk of fracture and the patient may be considered for treatment. Re-Screen 2-5 years. NOTE: T-SCORE=SD OF THE YOUNG ADULT MEAN.
--- NOTE | 2023-04-27 17:10 | MM ---
Reason for Exam: Screening (asymptomatic). Last screening mammogram was performed 12 month(s) ago. Patient History: Menarche at age 13. First Full-Term at age 27. Left ovary removed at age 61. Right ovary removed at age 61. Hysterectomy at age 61. Postmenopausal. Patient has history of breast feeding. Patient used Estrogen for 5 years. Patient used Hormonal Contraceptives for 10 years. Risk Values: Dominga 5 year model risk: 2.0%. NCI Lifetime model risk: 4.0%. Prior Study Comparison: 04/21/2020 Bilateral Screening Mammogram, [facility]. 04/23/2021 Bilateral Screening Mammogram, [facility]. 04/26/2022 Bilateral MG 3D screening mammo w/cad, [facility]. Tissue Density: There are scattered fibroglandular densities. Findings: Analyzed By CAD. Pattern appears symmetrical and stable. No significant change is evident. No suspicious groups of microcalcifications, spiculated or lobular masses, architectural distortion or other secondary signs of malignancy are mammographically apparent. Overall Assessment: Benign, BI-RAD 2 Management: Screening Mammogram of both breasts in 1 year. A negative mammogram report should not preclude additional follow up of suspicious palpable abnormalities. Patient should continue monthly self breast exam. A clinical breast exam by your physician is recommended on an annual basis and results should be correlated with mammographic findings. Electronically signed and approved by: Jamie Garza D.O. Radiologis
== END | disposition home or self-care (01) ==
LOC: RADMAMWWP 06:42
PROVIDERS: ATTEND Obstetrics & Gynecology
DX: Z12.31 Encounter for screening mammogram for malignant neoplasm of breast (principal); M81.0 Age-related osteoporosis without current pathological fracture; M85.89 Other specified disorders of bone density and structure, multiple sites; Z78.0 Asymptomatic menopausal state
CPT/HCPCS: 77063; 77067; 77080